=== PATIENT | male | born 1975 | race Hispanic/Latino ===

== ENCOUNTER 2018-07-24 13:50 | Emergency (ER) | payer OTHER, SELFPAY ==
[2018-07-24] MEDS ORDERED: ASPIRIN 81 MG CHEWABLE TABLET ONE (14:35)
[2018-07-24] MEDS ORDERED: FUROSEMIDE 40 MG/4 ML VIAL ONE (14:35)
--- NOTE | 2018-07-24 15:08 | RAD REPORT ---
EXAM DESCRIPTION: Reina Single View07/24/2018 2:52 pm CLINICAL HISTORY: Chest pain COMPARISON: none FINDINGS: Small to moderate left pleural effusion is suspected. Mild left lung opacities are noted which may indicate pneumonia Right lung appears clear. Heart is borderline enlarged. Postsurgical changes involve the chest
[2018-07-24 15:13] LABS: Absolute Lymphocytes (CBC) 1.6 K/uL (0.7-4.9); Absolute Monocytes 0.7 K/uL (0.1-1.3); Absolute Neutrophil 5.4 K/uL (1.8-8.0); Basophils % 1.5 % (0-1.3); Eosinophils % 11.8 % (0-4.4); Hematocrit 40.3 % (39.6-49.0); Lymphocytes % 18.3 % (15.3-44.8); MPV 8.3 fL (7.6-11.3); Monocytes % 7.8 % (3.3-12.3); RBC Red Blood Cell Count 4.73 M/uL (4.33-5.43)
[2018-07-24 15:14] LABS: Protime INR 1.16
[2018-07-24 15:29] LABS: ALT/SGPT 31 U/L (12-78); AST/SGOT 17 U/L (15-37); Albumin 3.1 g/dL (3.4-5.0); Alkaline Phosphatase 127 U/L (45-117); BUN Blood Urea Nitrogen 14 mg/dL (7-18); Bicarbonate 25 mmol/L (21-32); Bilirubin Direct 0.1 mg/dL (0-0.2); Bilirubin Total 0.7 mg/dL (0.2-1.0); Glucose Level 370 mg/dL (74-106); NT PRO-BNP 546 pg/mL (<125); Potassium 4.4 mmol/L (3.5-5.1); Protein, Total 7.7 g/dL (6.4-8.2); Sodium Level 136 mmol/L (136-145); Troponin (Emerg Dept Use Only) < 0.02 ng/mL (0.0-0.045)
[2018-07-24] MEDS ORDERED: CEFTRIAXONE/SWI 1gm 1 GM/10 ML SYR ONE (15:51)
--- NOTE | 2018-07-24 17:58 | ER ---
Nurse's Notes [facility] Name: Andrea Vasquez Age: 42 yrs Sex: Male : 1975 Arrival Date: 07/24/2018 Time: 13:51 Bed 4 Private MD: Diagnosis: Pneumonia, unspecified organism;Chest pain on breathing Presentation: 07/24 13:59 Presenting complaint: Patient states: Shortness of breath and back pain for the past 3 aj1 days. Reports that pain is worse when he takes a deep breath or coughs. Patient reports productive cough. Transition of care: patient was not received from another setting of care. Onset of symptoms was July 21, 2018. Risk Assessment: Do you want to hurt yourself or someone else? Patient reports no desire to harm self or others. Initial Sepsis Screen: Does the patient meet any 2 criteria? No. Patient's initial sepsis screen is negative. Does the patient have a suspected source of infection? Yes: Productive cough/pneumonia. Care prior to arrival: None. 13:59 Method Of Arrival: Ambulatory aj1 13:59 Acuity: BENNY 2 ss Triage Assessment: 14:01 General: Appears in no apparent distress. uncomfortable, Behavior is calm, cooperative, aj1 appropriate for age. Pain: Complains of pain in back Pain currently is 7 out of 10 on a pain scale. Neuro: Level of Consciousness is awake, alert, obeys commands. Cardiovascular: Patient's skin is warm and dry. Respiratory: Reports shortness of breath Airway is patent Respiratory effort is even, unlabored, Respiratory pattern is regular, symmetrical, Onset: The symptoms/episode began/occurred 3 days ago. Historical: - Allergies: 14:01 Metformin HCl; aj1 - Home Meds: 14:24 aspirin 81 mg Oral TbEC 1 tab once daily [Active]; lisinopril 5 mg Oral tab 1 tab once sv daily [Active]; Lopressor 50 mg Oral tab 1 tab 2 times per day [Active]; Lipitor 40 mg Oral tab 1 tab once daily [Active]; Ultram 50 mg Oral tab as needed [Active]; Zoloft 50 mg Oral tab 1 tab once daily [Active]; - PMHx: 14:01 CHF; Myocardial infarction; aj1 - PSHx: 14:01 triple bypass; aj1 - Immunization history:: Flu vaccine is not up to date. - Social history:: Smoking status: Patient uses tobacco products, denies chronic smoking, but will smoke occasionally, Patient uses alcohol, weekly. - Ebola Screening: : Patient denies travel to an Ebola-affected area in the 21 days before illness onset. Screenin:10 Abuse screen: Denies threats or abuse. Denies injuries from another. Nutritional sv screening: No deficits noted. Tuberculosis screening: No symptoms or risk factors identified. Fall Risk None identified. Assessment: 14:10 General: Appears in no apparent distress. uncomfortable, well developed, Behavior is sv calm, cooperative, appropriate for age. Pain: Complains of pain in back Pain currently is 6 out of 10 on a pain scale. Neuro: Level of Consciousness is awake, alert, obeys commands, Oriented to person, place, time, situation, Moves all extremities. Full function Gait is steady, Speech is normal. Cardiovascular: Patient's skin is warm and dry. Rhythm is sinus rhythm. Respiratory: Reports shortness of breath on exertion cough that is productive, pain with respiration Airway is patent Respiratory effort is even, unlabored, Respiratory pattern is regular, symmetrical. Derm: Skin is pink, warm \T\ dry. 15:00 Reassessment: Patient appears in no apparent distress at this time. No changes from hb previously documented assessment. Patient and/or family updated on plan of care and expected duration. Pain level reassessed. Patient is alert, oriented x 3, equal unlabored respirations, skin warm/dry/pink. 16:00 Reassessment: Patient appears in no apparent distress at this time. No changes from hb previously documented assessment. Patient and/or family updated on plan of care and expected duration. Pain level reassessed. Patient is alert, oriented x 3, equal unlabored respirations, skin warm/dry/pink. 17:00 Reassessment: Patient appears in no apparent distress at this time. No changes from hb previously documented assessment. Patient and/or family updated on plan of care and expected duration. Pain level reassessed. Patient is alert, oriented x 3, equal unlabored respirations, skin warm/dry/pink. 18:00 Reassessment: Patient appears in no apparent distress at this time. No changes from hb previously documented assessment. Patient and/or family updated on plan of care and expected duration. Pain level reassessed. Patient is alert, oriented x 3, equal unlabored respirations, skin warm/dry/pink. Vital Signs: 14:01 BP 129 / 89; Pulse 86; Resp 18; Temp 98.0; Pulse Ox 96% on R/A; Weight 92.99 kg (R); aj1 Height 5 ft. 7 in. (170.18 cm) (R); 14:49 BP 135 / 94; Pulse 81; Resp 22; Pulse Ox 96% ; sv 16:00 BP 122 / 81; Pulse 84; Resp 16; Pulse Ox 99% on R/A; hb 17:05 BP 124 / 73; Pulse 69; Resp 16; Pulse Ox 96% ; sv 18:00 BP 126 / 74; Pulse 70; Resp 15; Pulse Ox 99% on R/A; Pain 0/10; hb 14:01 Body Mass Index 32.11 (92.99 kg, 170.18 cm) aj1 ED Course: 13:51 Patient arrived in ED. as 14:00 Triage completed. aj1 14:01 Arm band placed on. aj1 14:10 Patient has correct armband on for positive identification. Placed in gown. Bed in low sv position. Call light in reach. Adult w/ patient. monitor tech on. Pulse ox on. NIBP on. Door closed. Head of bed elevated. 14:13 Jacinto Bach MD is Attending Physician. kdr 14:15 Initial lab(s) drawn, by me, sent to lab. Inserted saline lock: 18 gauge in left sv antecubital area, using aseptic technique. Blood collected. Flushed left antecubital with 5 ml normal saline. 14:22 EKG done, by special effects technician. reviewed by Jacinto Bach MD. sm3 14:23 Vickie Sutherland, RN is Primary Nurse. sv 14:28 Basic Metabolic Panel Sent. sv 14:28 CBC with Diff Sent. sv 14:28 LFT's Sent. sv 14:52 Lab(s) recollected, by me, sent to lab. mh5 14:54 XRAY Chest (1 view) In Process Unspecified. EDMS 17:20 Repeat lab(s) drawn. by me, sent to lab. mh5 18:39 No provider procedures requiring assistance completed. IV discontinued, intact, hb bleeding controlled, No redness/swelling at site. Pressure dressing applied. 19:00 Primary Nurse role handed off by Vickie Sutherland, DONTA sv Administered Medications: 14:26 Drug: Aspirin Chewable Tablet 324 mg Route: PO; hb 14:40 Follow up: Response: No adverse reaction sv 14:26 Drug: Lasix 40 mg Route: IVP; Site: left antecubital; hb 14:40 Follow up: Response: No adverse reaction sv 15:51 Drug: Rocephin - (cefTRIAXone) 1 grams Route: IVPB; Infused Over: 30 mins; Site: left hb antecubital; Outcome: 17:57 Discharge ordered by . kdr 18:39 Discharged to home ambulatory, with family. hb 18:39 Condition: stable 18:39 Discharge instructions given to patient, family, Instructed on discharge instructions, follow up and referral plans. medication usage, Demonstrated understanding of instructions, follow-up care, medications, Prescriptions given X 2. 18:48 Patient left the ED. Signatures: Dispatcher [employer] EDMS Melony Mays RN RN aj1 Vickie Sutherland, Jacinto Sanabria RN, MD MD kdr Martinez, Amelia as Smirch, Shelby, RN RN Shauna Rivas RN RN Amaya Castro 5 Briana Elmore 3 Corrections: (The following items were deleted from the chart) 14:16 13:59 Acuity: BENNY 3 aj1
--- NOTE | 2018-07-24 17:58 | EDPHYS ---
Physician Documentation [facility] Name: Andrea Vasquez Age: 42 yrs Sex: Male : 1975 Arrival Date: 07/24/2018 Time: 13:51 Bed 4 Private MD: ED Physician Jacinto Bach HPI: 07/24 18:14 This 42 yrs old Male presents to ER via Ambulatory with complaints of Flank kdr Pain, Shortness Of Breath. 18:14 The patient has shortness of breath at rest, with light activity. Onset: The kdr symptoms/episode began/occurred gradually, 3 day(s) ago. Duration: The symptoms are continuous, and are steadily getting worse. The patient's shortness of breath is aggravated by exertion, light activity, is alleviated by nothing. Associated signs and symptoms: Pertinent positives: chest pain, Left lateral inferior thorax. The patient has experienced similar episodes in the past, a few times, Seems similar to when he had . The patient has not recently seen a physician. Historical: - Allergies: 14:01 Metformin HCl; aj1 - Home Meds: 14:24 aspirin 81 mg Oral TbEC 1 tab once daily [Active]; lisinopril 5 mg Oral tab 1 tab once sv daily [Active]; Lopressor 50 mg Oral tab 1 tab 2 times per day [Active]; Lipitor 40 mg Oral tab 1 tab once daily [Active]; Ultram 50 mg Oral tab as needed [Active]; Zoloft 50 mg Oral tab 1 tab once daily [Active]; - PMHx: 14:01 CHF; Myocardial infarction; aj1 - PSHx: 14:01 triple bypass; aj1 - Immunization history:: Flu vaccine is not up to date. - Social history:: Smoking status: Patient uses tobacco products, denies chronic smoking, but will smoke occasionally, Patient uses alcohol, weekly. - Ebola Screening: : Patient denies travel to an Ebola-affected area in the 21 days before illness onset. ROS: 18:14 Constitutional: Negative for fever, chills, and weight loss, Eyes: Negative for injury, kdr pain, redness, and discharge, ENT: Negative for injury, pain, and discharge, Neck: Negative for injury, pain, and swelling, Abdomen/GI: Negative for abdominal pain, nausea, vomiting, diarrhea, and constipation, Back: Negative for injury and pain, : Negative for injury, bleeding, discharge, and swelling, MS/Extremity: Negative for injury and deformity, Skin: Negative for injury, rash, and discoloration, Neuro: Negative for headache, weakness, numbness, tingling, and seizure activity. Psych: Negative for depression, anxiety, suicide ideation, homicidal ideation, and hallucinations, Allergy/Immunology: Negative for hives, rash, and allergies, Endocrine: Negative for neck swelling, polydipsia, polyuria, polyphagia, and marked weight changes, Hematologic/Lymphatic: Negative for swollen nodes, abnormal bleeding, and unusual bruising. 18:14 Cardiovascular: Positive for chest pain, with cough, with movement, Negative for edema, orthopnea, palpitations, paroxysmal nocturnal dyspnea. Exam: 18:14 Constitutional: This is a well developed, well nourished patient who is awake, alert, kdr and in no acute distress. Head/Face: Normocephalic, atraumatic. Eyes: Pupils equal round and reactive to light, extra-ocular motions intact. Lids and lashes normal. Conjunctiva and sclera are non-icteric and not injected. Cornea within normal limits. Periorbital areas with no swelling, redness, or edema. Neck: Trachea midline, no thyromegaly or masses palpated, and no cervical lymphadenopathy. Supple, full range of motion without nuchal rigidity, or vertebral point tenderness. No Meningismus. Chest/axilla: Normal chest wall appearance and motion. Nontender with no deformity. No lesions are appreciated. Cardiovascular: Regular rate and rhythm with a normal S1 and S2. No gallops, murmurs, or rubs. Normal PMI, no JVD. No pulse deficits. Abdomen/GI: Soft, non-tender, with normal bowel sounds. No distension or tympany. No guarding or rebound. No evidence of tenderness throughout. Back: No spinal tenderness. No costovertebral tenderness. Full range of motion. Skin: Warm, dry with normal turgor. Normal color with no rashes, no lesions, and no evidence of cellulitis. MS/ Extremity: Pulses equal, no cyanosis. Neurovascular intact. Full, normal range of motion. Neuro: Awake and alert, GCS 15, oriented to person, place, time, and situation. Cranial nerves II-XII grossly intact. Motor strength 5/5 in all extremities. Sensory grossly intact. Cerebellar exam normal. Normal gait. Psych: Awake, alert, with orientation to person, place and time. Behavior, mood, and affect are within normal limits. 18:14 Respiratory: the patient does not display signs of respiratory distress, Respirations: normal, Breath sounds: rales, that are mild, are heard in the left posterior lower lobe. Vital Signs: 14:01 BP 129 / 89; Pulse 86; Resp 18; Temp 98.0; Pulse Ox 96% on R/A; Weight 92.99 kg (R); aj1 Height 5 ft. 7 in. (170.18 cm) (R); 14:49 BP 135 / 94; Pulse 81; Resp 22; Pulse Ox 96% ; sv 16:00 BP 122 / 81; Pulse 84; Resp 16; Pulse Ox 99% on R/A; hb 17:05 BP 124 / 73; Pulse 69; Resp 16; Pulse Ox 96% ; sv 18:00 BP 126 / 74; Pulse 70; Resp 15; Pulse Ox 99% on R/A; Pain 0/10; hb 14:01 Body Mass Index 32.11 (92.99 kg, 170.18 cm) aj1 MDM: 16:48 Data reviewed: vital signs, nurses notes, lab test result(s), EKG, radiologic studies. kdr Counseling: I had a detailed discussion with the patient and/or guardian regarding: the historical points, exam findings, and any diagnostic results supporting the discharge/admit diagnosis, lab results, radiology results, the need for outpatient follow up. ED course: The patient was stable in the ED. 17:57 Patient medically screened. [facility] 07/24 14:13 Order name: Basic Metabolic Panel [facility] 07/24 14:13 Order name: CBC with Diff 07/24 14:13 Order name: LFT's 07/24 14:13 Order name: Magnesium; Complete Time: 16:23 [facility] 07/24 14:13 Order name: NT PRO-BNP; Complete Time: 16:23 [facility] 07/24 14:13 Order name: PT-INR; Complete Time: 15:29 [facility] 07/24 14:13 Order name: Troponin (emerg Dept Use Only); Complete Time: 16:23 [facility] 07/24 14:13 Order name: XRAY Chest (1 view); Complete Time: 15:29 [facility] 07/24 14:13 Order name: Basic Metabolic Panel; Complete Time: 16:23 [facility] 07/24 14:13 Order name: CBC with Automated Diff; Complete Time: 15:29 [facility] 07/24 14:13 Order name: Liver (Hepatic) Function; Complete Time: 16:23 [facility] 07/24 16:49 Order name: Troponin (emerg Dept Use Only); Complete Time: 17:56 [facility] 07/24 14:13 Order name: EKG; Complete Time: 14:14 [facility] 07/24 14:13 Order name: Cardiac monitoring; Complete Time: 14:27 [facility] 07/24 14:13 Order name: EKG - Nurse/Tech; Complete Time: 14:27 [facility] 07/24 14:13 Order name: IV Saline Lock; Complete Time: 14: [facility] 07/24 14:13 Order name: Labs collected and sent; Complete Time: 14: [facility] 07/24 14:13 Order name: O2 Per Protocol; Complete Time: 14:27 [facility] 07/24 14:13 Order name: O2 Sat Monitoring; Complete Time: 14:28 [facility] 07/24 14:39 Order name: Labs - recollect needed; Complete Time: 14:52 eb Administered Medications: 14:26 Drug: Aspirin Chewable Tablet 324 mg Route: PO; hb 14:40 Follow up: Response: No adverse reaction sv 14:26 Drug: Lasix 40 mg Route: IVP; Site: left antecubital; hb 14:40 Follow up: Response: No adverse reaction sv 15:51 Drug: Rocephin - (cefTRIAXone) 1 grams Route: IVPB; Infused Over: 30 mins; Site: left hb antecubital; Disposition: 07/24/18 17:57 Discharged to Home. Impression: Pneumonia, unspecified organism, Chest pain on breathing. - Condition is Stable. - Discharge Instructions: Heart-Healthy Eating Plan, [id number], Heart-Healthy Eating Plan, Community-Acquired Pneumonia, Adult, Nonspecific Chest Pain, [id number]. - Prescriptions for Cipro 500 mg Oral Tablet - take 1 tablet by ORAL route every 12 hours for 10 days; 20 tablet. Albuterol Sulfate 90 mcg/actuation - inhale 1-2 puff by INHALATION route every 4-6 hours; 1 Inhaler. - Medication Reconciliation Form, Thank You Letter, Antibiotic Education form. - Follow up: Private Physician; When: 2 - 3 days; Reason: If symptoms return, Further diagnostic work-up, Recheck today's complaints, Continuance of care, Re-evaluation by your physician. - Problem is new. - Symptoms have improved. Signatures: Dispatcher [employer] EDMelony Velazquez RN RN aj1 Vickie Sutherland RN RN sv Jacinto Bach MD MD [facility] Shauna Rivas RN RN Leighann Langston Corrections: (The following items were deleted from the chart) 18:48 17:57 07/24/2018 17:57 Discharged to Home. Impression: Pneumonia, unspecified organism; hb Chest pain on breathing. Condition is Stable. Discharge Instructions: Heart-Healthy Eating Plan, [id number], Heart-Healthy Eating Plan. Forms are Medication Reconciliation Form, Thank You Letter, Antibiotic Education, Prescription Opioid Use. Follow up: Private Physician; When: 2 - 3 days; Reason: If symptoms return, Further diagnostic work-up, Recheck today's complaints, Continuance of care, Re-evaluation by your physician. Problem is new. Symptoms have improved. kdr
--- NOTE | 2018-07-25 06:44 | EKG ---
Test Date: 2018-07-24 Test Time: 14:09:08 Tool Radial Drill Press Set Up Operator: YADI MEASUREMENT RESULTS: Intervals: Rate: 87 TX: 162 QRSD: 122 QT: 368 QTc: 442 Chunky: P: 38 TX: 162 QRS: 126 T: 22 INTERPRETIVE STATEMENTS: Normal sinus rhythm Right axis deviation Anterior infarct, possibly acute ACUTE [place] Abnormal ECG Compared to ECG 01/05/2017 10:29:29 Right-axis deviation now present Sinus tachycardia no longer present Left-axis deviation no longer present T-wave abnormality no longer present Possible ischemia no longer present Myocardial infarct finding still present Electronically Signed On 07-25-18 06:42:22 CDT by Jabari Clemens
== END 2018-07-24 18:48 | disposition home or self-care (01) ==
LOC: ER 13:50
DX: J18.9 Pneumonia, unspecified organism (principal); I50.9 Heart failure, unspecified; I25.2 Old myocardial infarction; Z79.82 Long term (current) use of aspirin; Z88.8 Allergy status to other drugs, medicaments and biological substances; Z72.0 Tobacco use
CPT/HCPCS: 36415; 71045; 80048; 80076; 83735; 83880; 84484; 85025; 85610; 93005; 96374; 96375; 99285; J0696; J1940

== ENCOUNTER 2019-12-10 12:42 | Emergency (ER) | payer SELFPAY ==
--- NOTE | 2019-12-10 14:30 | RAD REPORT ---
EXAM DESCRIPTION: CT - Head Brain Wo Cont - 12/10/2019 2:05 pm CLINICAL HISTORY: HEADACHE COMPARISON: No comparisons TECHNIQUE: Axial 5 mm thick images of the head were obtained without IV contrast. All CT scans are performed using dose optimization technique as appropriate and may include automated exposure control or mA/KV adjustment according to patient size. FINDINGS: No intracranial hemorrhage, mass, edema or shift of mid-line structures. No acute infarcti on changes seen. No abnormal extra-axial fluid collections. Ventricles are normal. Mastoid air cells and visualized portions of the paranasal sinuses are clear. No acute bony findings. IMPRESSION: Negative non-contrast CT head examination.
--- NOTE | 2019-12-10 14:58 | ER ---
Nurse's Notes [facility] Name: Andrea Vasquez Age: 44 yrs Sex: Male : 1975 Arrival Date: 12/10/2019 Time: 12:43 Bed 23 Private MD: Diagnosis: Headache Presentation: 12/09 12:49 Chief complaint: Patient states: For the past 2 weeks or so, I have been feeling ca1 lightheaded, nauseous, pain on my eyes and back of my head, ringing of the ears, light and sound sensitivity. I feel like when my heart beats, I can feel it in my eyes. Denies hx of CVA. Reports Hx of heart attack with triple CABG. Coronavirus screen: Client denies travel out of the [place] in the last 14 days. At this time, the client does not indicate any symptoms associated with coronavirus-19. Ebola Screen: Patient negative for fever greater than or equal to 101.5 degrees Fahrenheit, and additional compatible Ebola Virus Disease symptoms Patient denies exposure to infectious person. Patient denies travel to an Ebola-affected area in the 21 days before illness onset. No symptoms or risks identified at this time. Initial Sepsis Screen: Does the patient meet any 2 criteria? No. Patient's initial sepsis screen is negative. Does the patient have a suspected source of infection? No. Patient's initial sepsis screen is negative. Risk Assessment: Do you want to hurt yourself or someone else? Patient reports no desire to harm self or others. Onset of symptoms was December 10, 2019. 12:49 Method Of Arrival: Ambulatory ca1 12:49 Acuity: BENNY 3 ca1 Triage Assessment: 14:28 General: Appears in no apparent distress. comfortable, Behavior is calm, cooperative. ls4 Historical: - Allergies: 12:57 Metformin HCl; ca1 - Home Meds: 12:57 aspirin 81 mg Oral TbEC 1 tab once daily [Active]; Lipitor 40 mg Oral tab 1 tab once ca1 daily [Active]; lisinopril 10 mg oral tab 1 tab once daily [Active]; metformin 1,000 mg Oral tab 1 tab 2 times per day [Active]; Lopressor 50 mg Oral tab 1 tab 2 times per day [Active]; bupropion HCl 150 mg Oral Tb24 1 tab twice a day [Active]; Lantus 100 unit/mL Sub-Q soln [Active]; Victoza 2-Sincere 0.6 mg/0.1 mL (18 mg/3 mL) subcutaneous pnij [Active]; Fish Oil oral oral [Active]; - PMHx: 12:57 CHF; Myocardial infarction; Diabetes - IDDM; ca1 - PSHx: 12:57 triple bypass; ca1 - Immunization history:: Adult Immunizations up to date. - Social history:: Smoking status: Patient reports the use of cigarette tobacco products, denies chronic smoking, but will smoke occasionally. - Family history:: not pertinent. - Hospitalizations: : No recent hospitalization is reported. Screenin:42 Abuse screen: Denies threats or abuse. Denies injuries from another. Nutritional ls4 screening: No deficits noted. Tuberculosis screening: No symptoms or risk factors identified. Fall Risk None identified. Assessment: 13:47 General: Appears in no apparent distress. comfortable. Pain:. Neuro: Level of ls4 Consciousness is awake, alert, obeys commands, Oriented to person, place, time, situation, Personal Banker are equal bilaterally Moves all extremities. Gait is steady, Speech is normal. Respiratory: No deficits noted. Respiratory effort is even, unlabored, Respiratory pattern is regular. EENT: Reports ringing in right ear and left ear like a wind in ears and can hear heart beat in ears in the middle of the night. Also complains of headaches. 14:55 Reassessment: Patient appears in no apparent distress at this time. Patient and/or ls4 family updated on plan of care and expected duration. Pain level reassessed. Patient is alert, oriented x 3, equal unlabored respirations, skin warm/dry/pink. Patient denies pain at this time. Vital Signs: 12:49 BP 130 / 98; Pulse 96; Resp 16 S; Temp 97.6(TE); Pulse Ox 96% on R/A; Weight 102.06 kg ca1 (R); Height 5 ft. 7 in. (170.18 cm) (R); Pain 0/10; 15:00 BP 121 / 90; Pulse 83; Resp 18; Temp 97.6(O); Pulse Ox 99% on R/A; Pain 0/10; ls4 12:49 Body Mass Index 35.24 (102.06 kg, 170.18 cm) ca1 Stephanie Coma Score: 14:56 Eye Response: spontaneous(4). Verbal Response: oriented(5). Motor Response: obeys rn commands(6). Total: 15. ED Course: 12:43 Patient arrived in ED. ag5 12:54 Triage completed. ca1 12:57 Arm band placed on right wrist. ca1 13:40 Cristina Saeed, RN is Primary Nurse. ls4 13:41 Papo Angeles MD is Attending Physician. rn 13:42 Patient has correct armband on for positive identification. Bed in low position. Call ls4 light in reach. Side rails up X 1. 13:49 No apparent distress. ls4 13:49 No provider procedures requiring assistance completed. Patient maintains SpO2 ls4 saturation greater than 95% on room air. 14:04 CT Head Brain wo Cont In Process Unspecified. EDMS 15:17 Patient did not have IV access during this emergency room visit. ls4 Administered Medications: No medications were administered Outcome: 14:57 Discharge ordered by . rn 15:16 Discharged to home ambulatory. ls4 15:16 Condition: good 15:16 Discharge instructions given to patient, family, Instructed on discharge instructions, follow up and referral plans. safe sex practices, Demonstrated understanding of instructions, follow-up care, medications. 15:17 Patient left the ED. ls4 Signatures: Dispatcher [employer] EDMS Papo Angeles MD MD rn Stewart, Lisa, RN RN ls4 Dayami Zaragoza RN RN ca1 Abdirahman Saravia ag5
--- NOTE | 2019-12-10 14:58 | EDPHYS ---
Physician Documentation [facility] Name: Andrea Vasquez Age: 44 yrs Sex: Male : 1975 Arrival Date: 12/10/2019 Time: 12:43 Bed 23 Private MD: ED Physician Papo Angeles HPI: 12/09 13:50 This 44 yrs old Male presents to ER via Ambulatory with complaints of headache.rn 13:50 The patient complains of pain to the top of head. The patient describes the headache as rn aching. 13:51 Onset: The symptoms/episode began/occurred 2 week(s) ago. Associated signs and rn symptoms: Pertinent negatives: altered mental status, fever, neck stiffness, rash, vision changes, vision loss, vomiting, vertigo. Severity of symptoms: At its worst the pain was moderate, in the emergency department the pain has improved. The symptoms are alleviated by nothing. the symptoms are aggravated by nothing. The patient has not experienced similar symptoms in the past. Reports recently started on victoza, has been experiencing headaches, posterior and behind eyes, no fever, no head injury, no focal neuro complaints. Does not feel ill. . Historical: - Allergies: 12:57 Metformin HCl; ca1 - Home Meds: 12:57 aspirin 81 mg Oral TbEC 1 tab once daily [Active]; Lipitor 40 mg Oral tab 1 tab once ca1 daily [Active]; lisinopril 10 mg oral tab 1 tab once daily [Active]; metformin 1,000 mg Oral tab 1 tab 2 times per day [Active]; Lopressor 50 mg Oral tab 1 tab 2 times per day [Active]; bupropion HCl 150 mg Oral Tb24 1 tab twice a day [Active]; Lantus 100 unit/mL Sub-Q soln [Active]; Victoza 2-Sincere 0.6 mg/0.1 mL (18 mg/3 mL) subcutaneous pnij [Active]; Fish Oil oral oral [Active]; - PMHx: 12:57 CHF; Myocardial infarction; Diabetes - IDDM; ca1 - PSHx: 12:57 triple bypass; ca1 - Immunization history:: Adult Immunizations up to date. - Social history:: Smoking status: Patient reports the use of cigarette tobacco products, denies chronic smoking, but will smoke occasionally. - Family history:: not pertinent. - Hospitalizations: : No recent hospitalization is reported. ROS: 13:51 Constitutional: Negative for fever, chills, and weight loss, Eyes: Negative for injury, rn pain, redness, and discharge, Neck: Negative for injury, pain, and swelling, Cardiovascular: Negative for chest pain, palpitations, and edema, Respiratory: Negative for shortness of breath, cough, wheezing, and pleuritic chest pain, Abdomen/GI: Negative for abdominal pain, nausea, vomiting, diarrhea, and constipation, MS/Extremity: Negative for injury and deformity, Skin: Negative for injury, rash, and discoloration, Neuro: Negative for weakness, numbness, tingling, and seizure. Exam: 13:51 Constitutional: This is a well developed, well nourished patient who is awake, alert, rn and in no acute distress. Head/Face: Normocephalic, atraumatic. Eyes: Pupils equal round and reactive to light, extra-ocular motions intact. Lids and lashes normal. Conjunctiva and sclera are non-icteric and not injected. Cornea within normal limits. Periorbital areas with no swelling, redness, or edema. Cardiovascular: Regular rate and rhythm. No pulse deficits. Respiratory: Speaking full sentences. No increased work of breathing, no retractions or nasal flaring. Skin: Warm, dry MS/ Extremity: Pulses equal, no cyanosis. Neuro: Awake and alert, GCS 15, oriented to person, place, time, and situation. Cranial nerves II-XII grossly intact. Motor strength 5/5 in all extremities. Sensory grossly intact. Cerebellar exam normal. Vital Signs: 12:49 BP 130 / 98; Pulse 96; Resp 16 S; Temp 97.6(TE); Pulse Ox 96% on R/A; Weight 102.06 kg ca1 (R); Height 5 ft. 7 in. (170.18 cm) (R); Pain 0/10; 15:00 BP 121 / 90; Pulse 83; Resp 18; Temp 97.6(O); Pulse Ox 99% on R/A; Pain 0/10; ls4 12:49 Body Mass Index 35.24 (102.06 kg, 170.18 cm) ca1 Stephanie Coma Score: 14:56 Eye Response: spontaneous(4). Verbal Response: oriented(5). Motor Response: obeys rn commands(6). Total: 15. MDM: 13:41 Patient medically screened. rn 14:56 Differential diagnosis: hypertensive headache, migraine, neoplasm, tension headache, rn vasomotor headache. Data reviewed: vital signs, nurses notes, EKG, radiologic studies, CT scan, and as a result, I will discharge patient. Counseling: I had a detailed discussion with the patient and/or guardian regarding: the historical points, exam findings, and any diagnostic results supporting the discharge/admit diagnosis, radiology results, the need for outpatient follow up, to return to the emergency department if symptoms worsen or persist or if there are any questions or concerns that arise at home. Response to treatment: the patient's symptoms have mildly improved after treatment, and as a result, I will discharge patient. Special discussion: I discussed with the patient/guardian in detail that at this point there is no indication for admission to the hospital. It is understood, however, that if the symptoms persist or worsen the patient needs to return immediately for re-evaluation. ED course: Neg ct head, no ischemia on ECG, will dc home as possible medication side effect, will f/u with pcp for further recs. . 12/09 13:49 Order name: CT Head Brain wo Cont; Complete Time: 14:55 rn 12/09 13:49 Order name: EKG; Complete Time: 13:50 rn 12/09 13:49 Order name: EKG - Nurse/Tech; Complete Time: 14:27 rn Administered Medications: No medications were administered Disposition: 12/10/19 14:57 Discharged to Home. Impression: Headache. - Condition is Stable. - Discharge Instructions: General Headache Without Cause, Hypertension. - Medication Reconciliation Form, Thank You Letter, Antibiotic Education, Prescription Opioid Use form. - Follow up: Private Physician; When: As needed; Reason: Recheck today's complaints, Re-evaluation by your physician. - Problem is new. - Symptoms have improved. Signatures: Dispatcher [employer] EDMS Papo Angeles MD MD rn Stewart, Lisa, RN RN ls4 Dayami Zaragoza RN RN ca1 Corrections: (The following items were deleted from the chart) 15:17 14:57 12/10/2019 14:57 Discharged to Home. Impression: Headache. Condition is Stable. ls4 Forms are Medication Reconciliation Form, Thank You Letter, Antibiotic Education, Prescription Opioid Use. Follow up: Private Physician; When: As needed; Reason: Recheck today's complaints, Re-evaluation by your physician. Problem is new. Symptoms have improved. rn
[2019-12-10 15:50] VITALS: TEMP 97.6
[2019-12-10 15:52] VITALS: BP 121/90; O2SAT 99
--- NOTE | 2019-12-11 11:23 | EKG ---
Test Date: 2019-12-10 Test Time: 14:29:13 Manager [place]: JEFFERSON MEASUREMENT RESULTS: Intervals: Rate: 93 ND: 196 QRSD: 130 QT: 376 QTc: 467 [place]: P: 47 ND: 196 QRS: 241 T: 77 INTERPRETIVE STATEMENTS: Normal sinus rhythm Right superior axis deviation Nonspecific intraventricular block Cannot rule out Anterior infarct, age undetermined Abnormal ECG Compared to ECG 07/24/2018 14:09:08 Right superior axis now present Right-axis deviation no longer present Myocardial infarct finding still present Electronically Signed On 12-11-19 11:20:26 CDT by Jabari Clemens
== END 2019-12-10 15:17 | disposition home or self-care (01) ==
LOC: ER 12:42
DX: R51 Headache (principal); E11.9 Type 2 diabetes mellitus without complications; I50.9 Heart failure, unspecified; I25.2 Old myocardial infarction; Z95.1 Presence of aortocoronary bypass graft; Z79.82 Long term (current) use of aspirin; Z79.4 Long term (current) use of insulin; Z88.8 Allergy status to other drugs, medicaments and biological substances
CPT/HCPCS: 70450; 93005; 99284

== ENCOUNTER 2022-06-18 14:41 | Emergency (ER) | payer SELFPAY ==
--- OUTSIDE RECORDS SUMMARY | 2022-06-18 14:46 | XMS REPORT | Continuity of Care Document ---
:1975 Author Organization [facility] t Address [address] [facility] [address] [place] [id number] Care Team Providers Name Role Phone Doctor Unassigned, [place] Attending Clinician Unavailable Christy Nazario Attending Clinician Unavailable Sujatha Woods MD Attending Clinician SUJATHA WOODS Attending Clinician Unavailable Problems Condition Condition Condition Status Onset Resolution Last Treating Co mments Source Name Details Category Date Date Treatment Clinician Date Essential Essential Disease Active 2020-0 Uni vers hypertensi hypertensi 6-17 it y of on on 00:00: [place] [id number] Medical Branch Cigarette Cigarette Disease Active 2020-0 Uni vers smoker smoker 6-17 ity of 00:00: [address] Branch Hyperlipid Hyperlipid Disease Active 2020-0 U nivers emia, emia, 6-17 ity of unspecifie [place] Medical hyperlipid hyperlipid Br anch emia type emia type CLIVE on CLIVE on Disease Active 2020-0 Univers CPAP CPAP 6-17 ity of 00:00: [place] 00 Medical Branch Obesity Obesity Disease Active 2020-0 Univers (BMI (BMI 6-17 ity of 30-39.9) 30-39.9) 00:00: [place] 00 Medical Branch Coronary Coronary Disease Active 2020-0 Unive rs artery artery 6-17 ity of disease disease 00:00: [place] involving involving 00 Medi mickey unga unga Branch coronary coronary artery of artery of unga unga heart heart without without angina angina pectoris pectoris Coronary Coronary Disease Active 2020-0 Unive rs artery artery 6-17 ity of disease disease 00:00: [place] involving involving 00 Medi mickey [place] un[place] Branch coronary coronary artery of artery of unga unga heart heart without without angina angina pectoris pectoris Allergies, Adverse Reactions, Alerts Allergy Allergy Status Severity Reaction(s) Onset Inactive Treating Comm ents Source Name Type Date Date Clinician Metformi Propensi Active Other - See Fall U nivers n ty to comments 09-15 asleep ity of adverse 00:00: easily [place] reaction 00 Medical s Branch METFORMI DRUG Active Other-Cmnt Univ ers N INGREDI 09-15 ity of 00:00: [place] 00 Medical Branch NO KNOWN Drug Active Univers ALLERGIE Class ity of S [place] [facility] [place] Social History Social Habit Start Date Stop Date Quantity Comments Source Exposure to Not sure University of SARS-CoV-2 [place] [facility] (event) Branch History of Cigarette Smoker Universi ty of tobacco use [place] [facility] History SDME University o f Alcohol Std [place] [facility] Drinks Branch History SDOH University o f Alcohol Binge [place] [facility] al Branch Sex Assigned At [facility] Alcohol intake 2019-09-16 2019-09-16 Current drinker Unive rsity of 00:00:00 00:00:00 of alcohol [place] [facility] (finding) Branch History SDOH 2019-09-16 2019-09-16 5 University o f Alcohol Frequency 00:00:00 00:00:00 [facility] edical Branch Tobacco use and 2019-09-16 2019-09-16 Never used Universit y of exposure 00:00:00 00:00:00 [facility] Smoking Status Start Date Stop Date Source Current every day smoker 2019-09-16 00:00:00 Uni [facility]ity [facility] Medications Ordered Filled Start Stop Current Ordering Indication Dosage Frequency Signature Comments Components Source Medication Medication Date Date Medication? Clinician (SIG) Name Name clopidogreL 2020- No 75mg Take 75 mg Univers 75 mg 09-15 by mouth ity of tablet 19:17: 00:00 daily. [place] 05 :00 Medical Branch clopidogreL 2020- No 75mg Take 75 mg Univers 75 mg 09-15 by mouth ity of tablet 19:17: 00:00 daily. [place] 05 :00 Medical Branch SERTraline Yes 150mg Take 150 Un last 100 mg 6-17 mg by ity of tablet 18:36: mouth [place] 12 daily. Medical Branch lisinopril Yes 5mg Take 5 mg Un last 5 mg tablet 17 by mouth ity of 18:36: daily. [place] 12 Medical Branch atorvastati Yes 10mg Take 10 mg Univers n (LIPITOR) 6-17 by mouth ity of 10 mg 18:36: at [place] tablet 12 bedtime. Medical Branch aspirin 81 2020-0 Yes 81mg Take 81 mg U nivers mg chewable 6-17 by mouth ity of tablet 18:36: daily. [place] [address] Medical Branch SERTraline 2020-0 Yes 150mg Take 150 Un last 100 mg 6-17 mg by ity of tablet 18:36: mouth [place] 12 daily. Medical Branch lisinopril 2020-0 Yes 5mg Take 5 mg Un last 5 mg tablet 6-17 by mouth ity of 18:36: daily. [place] [address] Medical Branch atorvastati 2020-0 Yes 10mg Take 10 mg Univers n (LIPITOR) 6-17 by mouth ity of 10 mg 18:36: at [place] tablet 12 bedtime. Medical Branch aspirin 81 2020-0 Yes 81mg Take 81 mg U nivers mg chewable 6-17 by mouth ity of tablet 18:36: daily. [place] [address] Medical Branch SERTraline 2020-0 Yes 150mg Take 150 Un last 100 mg 6-17 mg by ity of tablet 18:36: mouth [place] 12 daily. Medical Branch lisinopril 2020-0 Yes 5mg Take 5 mg Un last 5 mg tablet 6-17 by mouth ity of 18:36: daily. [place] [address] Medical Branch atorvastati 2020-0 Yes 10mg Take 10 mg Univers n (LIPITOR) 6-17 by mouth ity of 10 mg 18:36: at [place] tablet 12 bedtime. Medical Branch aspirin 81 2020-0 Yes 81mg Take 81 mg U nivers mg chewable 6-17 by mouth ity of tablet 18:36: daily. [place] [address] Medical Branch SERTraline 2020-0 Yes 150mg Take 150 Un last 100 mg 6-17 mg by ity of tablet 18:36: mouth [place] 12 daily. Medical Branch lisinopril 2020-0 Yes 5mg Take 5 mg Un last 5 mg tablet 6-17 by mouth ity of 18:36: daily. [place] [address] Medical Branch atorvastati 2020-0 Yes 10mg Take 10 mg Univers n (LIPITOR) 6-17 by mouth ity of 10 mg 18:36: at [place] tablet 12 bedtime. Medical Branch aspirin 81 2020-0 Yes 81mg Take 81 mg U nivers mg chewable 6-17 by mouth ity of tablet 18:36: daily. [place] 12 Medical Branch docosahexan 2020-0 Yes Take by Uni vers oic 6-17 mouth ity of acid/epa 18:36: daily. [place] (FISH OIL 11 Medical ORAL) Branch insulin 2020-0 Yes inject Univers aspart 6-17 under the ity of (NOVOLOG 18:36: skin [place] FLEXPEN 11 daily. Medical U-100 Indication Branch INSULIN SC) s: Sliding Scale insulin 2020-0 Yes 20U inject 20 Unive rs glargine,hu 6-17 Units ity of m.rec.anlog 18:36: under the [place] (LANTUS 11 skin Medical SOLOSTAR daily. Branch U-100 INSULIN SC) metoprolol 2020-0 Yes 50mg Take 50 mg U nivers tartrate 50 6-17 by mouth 2 it y of mg tablet 18:36: (two) [place] 11 times Medical daily. Branch docosahexan 2020-0 Yes Take by Uni vers oic 6-17 mouth ity of acid/epa 18:36: daily. [place] (FISH OIL 11 Medical ORAL) Branch insulin 2020-0 Yes inject Univers aspart 6-17 under the ity of (NOVOLOG 18:36: skin [place] FLEXPEN 11 daily. Medical U-100 Indication Branch INSULIN SC) s: Sliding Scale insulin 2020-0 Yes 20U inject 20 Unive rs glargine,hu 6-17 Units ity of m.rec.anlog 18:36: under the [place] (LANTUS 11 skin Medical SOLOSTAR daily. Branch U-100 INSULIN SC) metoprolol 2020-0 Yes 50mg Take 50 mg U nivers tartrate 50 6-17 by mouth 2 it y of mg tablet 18:36: (two) [place] 11 times Medical daily. Branch docosahexan 2020-0 Yes Take by Uni vers oic 6-17 mouth ity of acid/epa 18:36: daily. [place] (FISH OIL 11 Medical ORAL) Branch insulin 2020-0 Yes inject Univers aspart 6-17 under the ity of (NOVOLOG 18:36: skin [place] FLEXPEN 11 daily. Medical U-100 Indication Branch INSULIN SC) s: Sliding Scale insulin 2020-0 Yes 20U inject 20 Unive rs glargine,hu 6-17 Units ity of m.rec.anlog 18:36: under the [place] (LANTUS 11 skin Medical SOLOSTAR daily. Branch U-100 INSULIN SC) metoprolol 2020-0 Yes 50mg Take 50 mg U nivers tartrate 50 6-17 by mouth 2 it y of mg tablet 18:36: (two) [place] 11 times Medical daily. Branch docosahexan 2019-0 Yes Take by Uni vers oic 6-17 mouth ity of acid/epa 18:36: daily. [place] (FISH OIL 11 Medical ORAL) Branch insulin 2019-0 Yes inject Univers aspart 6-17 under the ity of (NOVOLOG 18:36: skin [place] FLEXPEN 11 daily. Medical U-100 Indication Branch INSULIN SC) s: Sliding Scale insulin 2019-0 Yes 20U inject 20 Unive rs glargine,hu 6-17 Units ity of m.rec.anlog 18:36: under the [place] (LANTUS 11 skin Medical SOLOSTAR daily. Branch U-100 INSULIN SC) metoprolol 2019-0 Yes 50mg Take 50 mg U nivers tartrate 50 6-17 by mouth 2 it y of mg tablet 18:36: (two) [place] 11 times Medical daily. Branch Vital Signs Vital Name Observation Time Observation Value Comments Source Systolic blood 2019-09-16 18:29:00 115 mm[Hg] Univer sity of pressure [facility] Diastolic blood 2019-09-16 18:29:00 78 mm[Hg] Unive rsity of [facility] Heart rate 2019-09-16 18:29:00 73 /min [facility] Respiratory rate 2019-09-16 18:29:00 19 /min [facility] Body height 2019-09-16 18:29:00 170.2 cm [facility] Body weight 2019-09-16 18:29:00 102.967 kg [facility] BMI 2019-09-16 18:29:00 35.55 kg/m2 [facility] Oxygen saturation in 2019-09-16 18:29:00 97 /min [facility] Arterial blood by [facility] Pulse oximetry Branch Procedures Procedure Date / Time Performing Clinician Source Performed AUTHORIZATION FOR 2019-11-28 05:01:00 Doctor Unassigned, No [facility] RELEASE OF PHI Name Medical Branch EKG-12 LEAD 2019-09-16 18:43:56 Sujatha Woods o kit [facility] Encounters Start End Encounter Admission Attending Care Care Encounter Source Date/Time Date/Time Type Type Clinicians Facility Department ID 2019-11-28 2019-11-28 Orders Doctor [facility] [id number] Univers 00:00:00 00:00:00 Only Unassigned, MAXIMILIAN [id number] ity of [facility] [id number] [place] as [phone] [facility] [address] [place] 2019-09-17 2019-09-17 Patient Nazario [facility] [id number] Univers 00:00:00 00:00:00 Outreach [facility] [id number] i ty of [place] [id number] [place] as Professio [phone] [place] alison vides [address] [place] [address] 2019-09-16 2019-09-16 Office Chuck [facility] [id number] Univers 13:07:30 15:08:36 Visit Sujatha Stoddard [id number] ity [id number] [place] Profess[place] [phone] [place] dicadithya nal [address] [facility] 2019-09-16 2019-09-16 Outpatient R CHUCK [facility] [id number] Univers 13:00:00 13:00:00 SUJATHA llamas o [facility] [place] [facility] Results This patient has no known results.
--- NOTE | 2022-06-18 16:09 | RAD REPORT ---
EXAM DESCRIPTION: Reina Single View06/18/2022 3:47 pm CLINICAL HISTORY: Chest pain COMPARISON: 2019 FINDINGS: Left pleural thickening is suspected The lungs appear clear of acute infiltrate. The heart is mildly enlarged. Postsurgical changes involve the chest IMPRESSION: No acute abnormalities displayed
[2022-06-18 16:26] LABS: Hematocrit 42.7 % (39.6-49.0); MCV 80.8 fL (80-100); MPV 8.1 fL (7.6-11.3); RBC Red Blood Cell Count 5.28 M/uL (4.33-5.43)
[2022-06-18 16:49] LABS: Albumin 2.5 g/dL (3.4-5.0); Bilirubin Total 0.5 mg/dL (0.2-1.0); Potassium 3.9 mEq/L (3.5-5.1); Protein, Total 6.6 g/dL (6.4-8.2)
--- NOTE | 2022-06-18 17:23 | RAD REPORT ---
EXAM DESCRIPTION: CT - Head Brain Wo Cont - 06/18/2022 5:09 pm CLINICAL HISTORY: Dizziness/visual disturbance COMPARISON: 2019 TECHNIQUE: Computed axial tomography of the head was obtained. IV contrast was not requested. All CT scans are performed using dose optimization technique as appropriate and may include automated exposure control or mA/KV adjustment according to patient size. FINDINGS: An intracranial bleed is not seen The ventricles are normal in caliber No significant hypodense areas within the brain visualized No extra-axial fluid collection is noted. Fluid within the sinuses/ mastoids is not seen IMPRESSION: No acute intracranial abnormality is seen If patient's symptoms persist MRI of the brain would be recommended
--- NOTE | 2022-06-18 17:37 | RAD REPORT ---
EXAM DESCRIPTION: Les Angio06/18/2022 5:09 pm CLINICAL HISTORY: Dizziness/visual disturbance COMPARISON: None TECHNIQUE: Ninety-five cc Isovue 370 was administered intravenously. 3D MIP reconstruction performed All CT scans are performed using dose optimization technique as appropriate and may include automated exposure control or mA/KV adjustment according to patient size. FINDINGS: Mild plaque is present within the carotid bulb and proximal internal carotid arteries. Mild plaque within common carotid and external carotid arteries. Vertebral arteries are codominant. No significant stenosis. Evaluation of the proximal right vertebral artery is limited secondary to ar tifact. No dissection noted IMPRESSION: Mild plaque within the proximal internal carotid arteries and carotid bulbs NASCET criteria used. Mild 0-49% stenosis Moderate 50-69% stenosis Severe 70-99% stenosis
--- NOTE | 2022-06-18 17:41 | RAD REPORT ---
EXAM DESCRIPTION: CTHead angio06/18/2022 5:08 pm CLINICAL HISTORY: Dizziness/visual disturbance COMPARISON: None TECHNIQUE: CT angiogram of the head was obtained. 3D MIPS reconstruction performed. All CT scans are performed using dose optimization technique as appropriate and may include automated exposure control or mA/KV adjustment according to patient size. FINDINGS: Mild to moderate calcified plaque distal internal carotid arteries The basilar,, anterior cerebral, middle cerebral and posterior cerebral arteries do not demonstrate a significant abnormality An aneurysm is not seen A significant stenosis is not noted. IMPRESSION: No acute abnormality is displayed
--- NOTE | 2022-06-18 19:09 | EDPHYS ---
Physician Documentation [facility] Name: Andrea Vasquez Age: 46 yrs Sex: Male : 1975 Arrival Date: 06/18/2022 Time: 14:44 Bed 12 Private MD: ED Physician Phoenix Veras HPI: 06/18 15:06 This 46 yrs old Male presents to ER via Unassigned with complaints of bs3 Weakness, Vision Problem, Dizziness, Breathing Difficulty. 15:06 46-year-old male history of CAD status post CABG, smoker has not seen a primary care bs3 doctor or doctor since November presents with multiple complaints he notes some shortness of breath at mainly he is concerned about dizziness is worse when he leans forward he does not have associated syncope, no numbness tingling or weakness he notes a headache mostly behind his eyes which is chronic in nature he notes that his symptoms have been ongoing for months however they worsened over the last several days no fevers or chills no vomiting diarrhea no black tarry stools or anything else bothering him. Historical: - Allergies: 15:40 Metformin HCl (Sleepy); aa5 - PMHx: 15:40 CHF; Diabetes - IDDM; Myocardial infarction; aa5 15:40 Hypertensive disorder; aa5 - PSHx: 15:40 triple bypass; aa5 - Immunization history:: Adult Immunizations unknown. - Social history:: Smoking status: Patient denies any tobacco usage or history of. ROS: 15:06 Constitutional: Negative for fever, chills bs3 15:06 All other systems are negative. Exam: 15:06 Constitutional: This is a well developed, well nourished patient who is awake, alert, bs3 and in no acute distress. Head/Face: Normocephalic, atraumatic. Eyes: Pupils equal round and reactive to light, extra-ocular motions intact. Lids and lashes normal. ENT: mmm, no posterior phyarngeal erythema Neck: Trachea midline, no thyromegaly, no neck stiffness Chest/axilla: Normal chest wall appearance and motion. Nontender with no deformity. No lesions are appreciated. Cardiovascular: Regular rate and rhythm with a normal S1 and S2. symmetric pulses in upper extremities Respiratory: Lungs have equal breath sounds bilaterally, clear to auscultation, no respiratory distress Abdomen/GI: Soft, non-tender, no rebound or guarding Skin: Warm, dry with normal turgor. Normal color with no rashes, no lesions, and no evidence of cellulitis. MS/ Extremity: Pulses equal, no cyanosis. Neurovascular intact. Full, normal range of motion. Neuro: Awake and alert, GCS 15, oriented to person, place, time, and situation. Cranial nerves II-XII grossly intact. Motor strength 5/5 in all extremities. Sensory grossly intact. Normal gait, NIH stroke scale of 0 Psych: Awake, alert, with orientation to person, place and time. Behavior, mood, and affect are within normal limits. 16:12 Normal sinus rhythm at 78 QRS duration slightly prolonged at [address] elevations or bs3 depressions QTc 469 as inter by myself, not significantly changed from 12/10/2019 19:09 ECG was reviewed by the Attending Physician. [facility] Vital Signs: 15:38 BP 123 / 79; Pulse 80; Resp 16 S; Temp 97.1(TE); Pulse Ox 97% on R/A; Weight 92.99 kg aa5 (R); Height 5 ft. 7 in. (R); 15:38 Body Mass Index 32.11 (92.99 kg, 170.18 cm) aa5 MDM: 14:55 Patient medically screened. bs3 15:06 Data reviewed: vital signs, nurses notes. ED course: Possible carotid artery disease or bs3 vertebral artery disease he is not a candidate for intervention given the duration of his symptoms his NIH stroke scale is 0 possible electrolyte abnormality possible anemia we will do serial exams we will check blood and reassess. 16:56 Consideration of Admission/Observation Escalation of care including bs3 admission/observation considered. Independent interpretation of the following test(s) in the Emergency Department X-Ray: My interpretation is no acute cardiopulm disease. ED course: BNP elevated approximately doubled from prior but that was over 3 years ago he is not hypoxic tachypneic or having increased work of breathing recommended outpatient management. 17:04 ED course: Troponin slightly elevated but less than 34 we will repeat at 3 hours. bs3 17:06 ED course: Patient ambulated without difficulty to CT no dizziness no lightheadedness bs3 no dyspnea. 17:40 ED course: reviewed pt outpatient chart, trop in 2020 was in 26, bnp 1000. bs3 17:42 ED course: cta neg for acute pathology. bs3 06/18 15:06 Order name: CBC with Diff; Complete Time: 16:37 bs3 06/18 15:06 Order name: Comprehensive Metabolic Panel; Complete Time: 16:52 bs3 06/18 16:53 Interpretation: Abnormal. bs3 06/18 15:06 Order name: Troponin High Sensitivity; Complete Time: 16:52 bs3 06/18 15:06 Order name: BNP; Complete Time: 16:52 bs3 06/18 16:54 Interpretation: Abnormal. bs3 06/18 17:04 Order name: Troponin High Sensitivity: to be done at 6pm; Complete Time: 19:07 bs3 06/18 15:06 Order name: XRAY Chest (1 view); Complete Time: 16:18 bs3 06/18 15:06 Order name: CT Head Angio; Complete Time: 17:42 bs3 06/18 15:06 Order name: CT Neck Angio; Complete Time: 17:42 bs3 06/18 15:06 Order name: CT Head Brain wo Cont; Complete Time: 17:42 bs3 06/18 18:28 Order name: EKG; Complete Time: 18:29 marlo 06/18 15:06 Order name: EKG - Nurse/Tech; Complete Time: 16:54 bs3 06/18 18:28 Order name: EKG - Nurse/Tech marlo 06/18 18:28 Order name: Orthostatics marlo EC:09 Rate is 75 beats/min. Rhythm is regular. QRS [place] is Normal. ND interval is normal. QRS marlo interval is normal. QT interval is normal. No Q waves. T waves are Normal. No ST changes noted. Clinical impression: NSR w/ Non-specific ST/T Changes and No evidence of ischemia. Interpreted by me. Reviewed by me. Administered Medications: No medications were administered Disposition Summary: 06/18/22 19:07 Discharge Ordered Location: Home marlo Problem: an acute exacerbation marlo Symptoms: have improved marlo Condition: Fair marlo Diagnosis - Dizziness and giddiness marlo - Heart failure, unspecified marlo - Hyperglycemia, unspecified marlo - Type 1 diabetes mellitus with hyperglycemia marlo Followup: bs3 - With: - When: 1 - 2 days - Reason: Recheck today's complaints Followup: bs3 - With: - When: 1 - 2 days - Reason: Recheck today's complaints Discharge Instructions: - Diabetes Mellitus and Nutrition, Adult marlo - Aspirin and Your Heart marlo - Type 1 Diabetes Mellitus, Self-Care, Adult marlo - Discharge Summary Sheet bs3 - Heart Failure, Diagnosis bs3 - Dizziness bs3 - Hyperglycemia bs3 Forms: - Medication Reconciliation Form marlo - Thank You Letter marlo - Antibiotic Education marlo - Prescription Opioid Use marlo Signatures: Dispatcher [employer] EDPhoenix Barclay MD MD cha Calderon, Audri RN RN aa5 Ney Burr MD MD bs3 Corrections: (The following items were deleted from the chart) 16:16 16:12 Normal sinus rhythm at 78 QRS duration slightly prolonged at [address] elevations bs3 or depressions QTc 469 as inter by myself bs3
--- NOTE | 2022-06-18 19:09 | ER ---
Nurse's Notes [facility] Name: Andrea Vasquez Age: 46 yrs Sex: Male : 1975 Arrival Date: 06/18/2022 Time: 14:44 Bed 12 Private MD: Diagnosis: Dizziness and giddiness;Heart failure, unspecified;Hyperglycemia, unspecified;Type 1 diabetes mellitus with hyperglycemia Presentation: 06/18 15:38 Onset of symptoms was May 2022. aa5 15:38 Acuity: BENNY 3 aa5 15:38 Chief complaint: Patient states: intermittent dizziness and feeling lightheaded that aa5 began 2-3 months ago. 15:38 Risk Assessment: Do you want to hurt yourself or someone else? Patient reports no aa5 desire to harm self or others. 15:38 Coronavirus screen: At this time, the client does not indicate any symptoms associated aa5 with coronavirus-19. Ebola Screen: Patient denies travel to an Ebola-affected area in the 21 days before illness onset. 15:38 Method Of Arrival: Ambulatory aa5 Historical: - Allergies: 15:40 Metformin HCl (Sleepy); aa5 - PMHx: 15:40 CHF; Diabetes - IDDM; Myocardial infarction; aa5 15:40 Hypertensive disorder; aa5 - PSHx: 15:40 triple bypass; aa5 - Immunization history:: Adult Immunizations unknown. - Social history:: Smoking status: Patient denies any tobacco usage or history of. Vital Signs: 15:38 BP 123 / 79; Pulse 80; Resp 16 S; Temp 97.1(TE); Pulse Ox 97% on R/A; Weight 92.99 kg aa5 (R); Height 5 ft. 7 in. (R); 15:38 Body Mass Index 32.11 (92.99 kg, 170.18 cm) aa5 ED Course: 14:44 Patient arrived in ED. rg4 14:55 Ney Burr MD is Attending Physician. bs3 15:35 Arm band placed on. aa5 15:38 Triage completed. aa5 15:49 XRAY Chest (1 view) In Process Unspecified. EDMS 16:42 Leanna Pena, RN is Primary Nurse. iw 17:10 CT Head Angio In Process Unspecified. EDMS 17:10 CT Neck Angio In Process Unspecified. EDMS 17:10 CT Head Brain wo Cont In Process Unspecified. EDMS 18:21 Attending Physician role handed off by Ney Burr MD [facility] 18:21 Phoenix Veras MD is Attending Physician. marlo 19:07 Bert Beach MD is Referral Physician. marlo 19:07 Van Webb MD is Referral Physician. marlo Administered Medications: No medications were administered Outcome: : Discharge ordered by . [facility] 19:41 Patient left the ED. iw Signatures: Dispatcher [employer] EDME Phoenix Veras MD MD cha Williams, Irene, RN RN Shirley Almonte RN RN Arelis Elias 4 Ney uBrr MD MD bs3 Corrections: (The following items were deleted from the chart) 15:41 15:38 Pulse 80bpm; Resp 16bpm; Spontaneous; Pulse Ox 97% RA; Temp 97.1F Temporal; aa5 aa5
[2022-06-18 22:14] VITALS: BP 123/79; TEMP 97.1; O2SAT 97
--- NOTE | 2022-06-19 12:59 | EKG ---
Test Date: 2022-06-18 Test Time: 18:45:37 Solution Spec: CLAUDINE MEASUREMENT RESULTS: Intervals: Rate: 75 TN: 192 QRSD: 136 QT: 408 QTc: 455 [place]: P: 51 TN: 192 QRS: 266 T: 78 INTERPRETIVE STATEMENTS: Normal sinus rhythm Nonspecific intraventricular block Possible Anterolateral infarct, age undetermined Abnormal ECG Compared to ECG 12/10/2019 14:29:13 Right superior axis no longer present Myocardial infarct finding still present Electronically Signed On 06-19-22 12:58:04 CDT by Bert Beach
== END 2022-06-18 19:41 | disposition home or self-care (01) ==
LOC: ER 14:41
DX: R42 Dizziness and giddiness (principal); E10.65 Type 1 diabetes mellitus with hyperglycemia; I50.9 Heart failure, unspecified; I10 Essential (primary) hypertension; Z88.8 Allergy status to other drugs, medicaments and biological substances
CPT/HCPCS: 36415; 70450; 70496; 70498; 71045; 80053; 83880; 84484; 85025; 93005; Q9967

== ENCOUNTER 2022-11-09 22:56 | Observation (INO) | payer SELFPAY ==
[2022-11-09 23:41] LABS: Absolute Lymphocytes (CBC) 1.4 K/uL (0.7-4.9); Hematocrit 46.9 % (39.6-49.0); Lymphocytes % 10.2 % (15.3-44.8); MCV 83.4 fL (80-100); MPV 7.6 fL (7.6-11.3); Platelets 324 thou/uL (152-406); RBC Red Blood Cell Count 5.62 M/uL (4.33-5.43)
[2022-11-09 23:45] LABS: Protime INR 1.1
[2022-11-09] MEDS ORDERED: FAMOTIDINE 20 MG/2 ML VIAL IV ONE (23:49)
[2022-11-09] MEDS ORDERED: ASPIRIN 81 MG CHEWABLE TABLET ONE (23:49)
[2022-11-09] MEDS ORDERED: ONDANSETRON 4 MG/2 ML VIAL ONE (23:49)
[2022-11-09] MEDS ORDERED: NA CHLORIDE 0.9% 1,000 ML ONE (23:50)
[2022-11-10 00:09] LABS: Albumin 3.1 g/dL (3.4-5.0); Bilirubin Direct 0.2 mg/dL (0-0.2); Bilirubin Indirect, Calculated 0.6 mg/dL (0.2-0.8); Bilirubin Total 0.8 mg/dL (0.2-1.0); Magnesium 1.8 mg/dL (1.6-2.4); Protein, Total 7.9 g/dL (6.4-8.2); Troponin High Sensitivity 43.3 pg/mL (<58.9)
[2022-11-10] MEDS ORDERED: MORPHINE 4 MG/ML SYR ONE ×2 (00:12→02:26)
[2022-11-10] MEDS ORDERED: ONDANSETRON 4 MG/2 ML VIAL ONE ×2 (00:13→02:26)
--- NOTE | 2022-11-10 00:51 | ER ---
Nurse's Notes [facility] Name: Andrea Vasquez Age: 47 yrs Sex: Male : 1975 Arrival Date: 11/09/2022 Time: 22:56 Bed 6 Private MD: Diagnosis: Vomiting;Chest pain, unspecified;Cardiomegaly;Type 1 diabetes mellitus with hyperglycemia;Essential (primary) hypertension;Elevated white blood cell count Presentation: 11/09 23:33 Chief complaint: Patient states: I've been having chest pain for the last 2 hours is vc1 started as a pain in my tooth (left bottom jaw) then it moved to my chest. Coronavirus screen: Vaccine status: Patient reports receiving the 1st dose of the Covid vaccine. unsure of residential sales manager Client denies travel out of the [place] in the last 14 days. At this time, the client does not indicate any symptoms associated with coronavirus-19. Ebola Screen: Patient negative for fever greater than or equal to 101.5 degrees Fahrenheit, and additional compatible Ebola Virus Disease symptoms Patient denies exposure to infectious person. Patient denies travel to an Ebola-affected area in the 21 days before illness onset. No symptoms or risks identified at this time. Initial Sepsis Screen: Does the patient meet any 2 criteria? No. Patient's initial sepsis screen is negative. Does the patient have a suspected source of infection? No. Patient's initial sepsis screen is negative. Risk Assessment: Do you want to hurt yourself or someone else? Patient reports no desire to harm self or others. Onset of symptoms was November 09, 2022 at 21:30. 23:33 Method Of Arrival: Ambulatory vc1 23:33 Acuity: BENNY 3 vc1 23:45 Note pt taken off of metoprolol and lisinopril a few weeks ago due to lowering blood vc1 pressure too much. Triage Assessment: 23:40 General: Appears in no apparent distress. uncomfortable, Behavior is cooperative. Pain: vc1 Complains of pain in mid-sternal area Pain radiates to left jaw and left arm Pain currently is 8 out of 10 on a pain scale. Quality of pain is described as discomfort Pain began 2 hours ago. Is intermittent. EENT: No deficits noted. No signs and/or symptoms were reported regarding the EENT system. Neuro: Level of Consciousness is awake, alert, obeys commands, Oriented to person, place, time, situation, Appropriate for age. Cardiovascular: Reports chest pain, nausea, Patient's skin is warm and dry. Chest pain is described as severe, quality is discomfort radiates to left arm(s) jaw(s) began 2 hours prior to arrival episodes are intermittent. Respiratory: Airway is patent Respiratory effort is even, unlabored, Respiratory pattern is regular, symmetrical. GI: Reports nausea. : No deficits noted. No signs and/or symptoms were reported regarding the genitourinary system. Derm: No deficits noted. No signs and/or symptoms reported regarding the dermatologic system. Musculoskeletal: No deficits noted. No signs and/or symptoms reported regarding the musculoskeletal system. Historical: - Allergies: 23:37 Metformin HCl (Sleepy); vc1 - Home Meds: 23:37 aspirin 81 mg Oral TbEC 1 tab once daily [Active]; Lantus 100 unit/mL Sub-Q soln vc1 [Active]; Ozempic subcutaneous 2 units every week [Active]; Farxiga 10 mg oral tablet daily [Active]; - PMHx: 23:37 CHF; Diabetes - IDDM; Hypertensive disorder; Myocardial infarction; vc1 - PSHx: 23:37 triple bypass; vc1 - Immunization history:: Client reports receiving the 1st dose of the Covid vaccine, Flu vaccine is not up to date. - Social history:: Smoking status: Reported history of juuling and/or vaping. Screenin:43 Abuse screen: Denies threats or abuse. Nutritional screening: No deficits noted. vc1 Tuberculosis screening: No symptoms or risk factors identified. 23:45 [facility] ED Fall Risk Assessment (Adult) History of falling in the last 3 months, vc1 including since admission No falls in past 3 months (0 pts) Confusion or Disorientation No (0 pts) Intoxicated or Sedated No (0 pts) Impaired Gait No (0 pts) Mobility Assist Device Used No (0 pt) Altered Elimination No (0 pt) Score/Fall Risk Level 0 - 2 = Low Risk Oriented to surroundings, Maintained a safe environment, Educated pt \T\ family on fall prevention, incl call for assistance when getting out of bed. Assessment: 23:46 General: Appears in no apparent distress. uncomfortable, Behavior is cooperative, jb4 anxious. Pain: Complains of pain in chest Pain does not radiate. Pain currently is 8 out of 10 on a pain scale. Neuro: Level of Consciousness is awake, alert, obeys commands, Oriented to person, place, time, situation. Cardiovascular: Patient's skin is warm and dry. Respiratory: Airway is patent Respiratory effort is even, unlabored, Respiratory pattern is regular, symmetrical. GI: Abdomen is flat, non-distended, Reports nausea. : No signs and/or symptoms were reported regarding the genitourinary system. EENT: No signs and/or symptoms were reported regarding the EENT system. Derm: Skin is intact, Skin is pink, warm \T\ dry. Musculoskeletal: Circulation, motion, and sensation intact. Range of motion: intact in all extremities. 11/10 00:30 Reassessment: Patient appears in no apparent distress at this time. Patient and/or jb4 family updated on plan of care and expected duration. Pain level reassessed. Patient is alert, oriented x 3, equal unlabored respirations, skin warm/dry/pink. 01:30 Reassessment: Patient appears in no apparent distress at this time. Patient and/or jb4 family updated on plan of care and expected duration. Pain level reassessed. Patient is alert, oriented x 3, equal unlabored respirations, skin warm/dry/pink. 02:49 Reassessment: Patient appears in no apparent distress at this time. Patient and/or jb4 family updated on plan of care and expected duration. Pain level reassessed. Patient is alert, oriented x 3, equal unlabored respirations, skin warm/dry/pink. Vital Signs: 11/09 23:33 BP 184 / 114; Pulse 117; Resp 15; Temp 98.9; Pulse Ox 97% ; Weight 88.45 kg; Height 5 vc1 ft. 7 in. ; Pain 8/10; 11/10 00:30 BP 164 / 101; Pulse 107; Resp 22; Pulse Ox 98% on R/A; jb4 00:56 BP 153 / 97; Pulse 107; Resp 20; Pulse Ox 94% on R/A; jb4 01:30 BP 152 / 102; Pulse 109; Resp 19; Pulse Ox 96% on R/A; jb4 02:49 BP 138 / 101; Pulse 99; Resp 22; Pulse Ox 93% on R/A; jb4 11/09 23:33 Body Mass Index 30.54 (88.45 kg, 170.18 cm) vc1 11/09 23:33 Pain Scale: Adult vc1 ED Course: 11/09 22:57 Patient arrived in ED. jj6 23:27 Phoenix Veras MD is Attending Physician. [facility] 23:30 Initial lab(s) drawn, by ms, sent to lab. Inserted saline lock: 18 gauge in right jb4 antecubital area, using aseptic technique. Blood collected. 23:37 Triage completed. vc1 23:43 Arm band placed on left wrist. vc1 23:44 Patient has correct armband on for positive identification. Bed in low position. Call vc1 light in reach. Client placed on continuous cardiac and pulse oximetry monitoring. NIBP monitoring applied. 23:45 Solomon Dougherty, DONTA is Primary Nurse. [facility] 23:55 XRAY Chest (1 view) In Process Unspecified. EDMS 11/10 00:48 Luis E Laughlin MD is Hospitalizing Provider. [facility] 02:51 Notified ED physician of a critical lab result(s). troponin 83. kl 03:08 No provider procedures requiring assistance completed. Patient admitted, IV remains in vc1 place. 03:09 Provided Education on: Plavix vs. lovenox. vc1 Administered Medications: 00:38 Discontinued: NS 0.9% IV 1000 ml IV at 1 bolus Per protocol; 1000 mL bolus [facility] 11/09 23:45 Drug: NS 0.9% IV 1000 ml Route: IV; Rate: 1 bolus; Site: right antecubital; [facility] 11/10 00:30 Follow up: Response: No adverse reaction; IV Status: Completed infusion; IV Intake: jb4 1000ml 11/09 23:45 Drug: Ondansetron IVP 4 mg Route: IVP; Site: right antecubital; [facility] 23:45 Drug: Aspirin PO Chewable Tablet 162 mg Route: PO; [facility] 23:45 Drug: Famotidine IVP 20 mg Route: IVP; Site: right antecubital; [facility] 11/10 00:07 Drug: morphine IVP or IV 4 mg Route: IVP; Infused Over: 4 mins; Site: right antecubital;vc1 00:07 Drug: Ondansetron IVP 4 mg Route: IVP; Site: right antecubital; vc1 01:01 Not Given (Hemodynamic Parameters): Metoprolol IVP 5 mg IVP once; Hold for SBP <100 or jb4 HR <60. 01:01 Not Given (Other Intervention Used): Lisinopril PO 10 mg PO once jb4 01:04 Not Given (Other Intervention Used): Nitroglycerin Transdermal Ointment 2 % 1 inches jb4 Transdermal once 01:12 Drug: Metoprolol PO 50 mg Route: PO; jb4 01:12 Drug: Furosemide IVP 40 mg Route: IVP; Site: right antecubital; jb4 01:12 Drug: Enoxaparin Sub-Q 1 mg/kg Route: Sub-Q; Site: right lower abdomen; jb4 01:12 Drug: Lisinopril PO 5 mg Route: PO; jb4 01:12 Drug: Nitroglycerin Transdermal Ointment 2 % 0.5 inches Route: Transdermal; Site: jb4 anterior chest wall; 03:05 Drug: Clopidogrel PO 300 mg Route: PO; vc1 03:05 Follow up: Response: administered at admission vc1 Medication: 11/09 23:45 VIS not applicable for this client. vc1 Intake: 11/10 00:30 IV: 1000ml; Total: 1000ml. jb4 Outcome: 00:51 Decision to Hospitalize by Provider. marlo 03:09 Admitted to Tele accompanied by nurse, via wheelchair, room 410. vc1 03:09 Condition: good 03:09 Instructed on the need for admit. 03:10 Patient left the ED. vc1 Signatures: Dispatcher [employer] EDMiranda Monroe RN RN kl Anderson, Corey, MD MD cha Bryson, James, RN RN jb4 Jeffries, Jennifer jj6 Ivanna Barrow RN RN vc1
--- NOTE | 2022-11-10 00:52 | EDPHYS ---
Physician Documentation [facility] Name: Andrea Vasquez Age: 47 yrs Sex: Male : 1975 Arrival Date: 11/09/2022 Time: 22:56 Bed 6 Private MD: ED Physician Phoenix Veras HPI: 11/10 00:40 This 47 yrs old Male presents to ER via Ambulatory with complaints of marlo Nausea/Vomiting, Chest Pain. 00:40 The patient presents to the emergency department with nausea, vomiting, marlo Historical: - Allergies: 11/09 23:37 Metformin HCl (Sleepy); vc1 - Home Meds: 23:37 aspirin 81 mg Oral TbEC 1 tab once daily [Active]; Lantus 100 unit/mL Sub-Q soln vc1 [Active]; Ozempic subcutaneous 2 units every week [Active]; Farxiga 10 mg oral tablet daily [Active]; - PMHx: 23:37 CHF; Diabetes - IDDM; Hypertensive disorder; Myocardial infarction; vc1 - PSHx: 23:37 triple bypass; vc1 - Immunization history:: Client reports receiving the 1st dose of the Covid vaccine, Flu vaccine is not up to date. - Social history:: Smoking status: Reported history of juuling and/or vaping. ROS: 11/10 00:40 Constitutional: Negative for fever, chills, and weight loss, Eyes: Negative for injury, marlo pain, redness, and discharge, ENT: Negative for injury, pain, and discharge, Neck: Negative for injury, pain, and swelling, Respiratory: Negative for shortness of breath, cough, wheezing, and pleuritic chest pain, Back: Negative for injury and pain, : Negative for injury, bleeding, discharge, and swelling, MS/Extremity: Negative for injury and deformity, Skin: Negative for injury, rash, and discoloration, Neuro: Negative for headache, weakness, numbness, tingling, and seizure, Psych: Negative for depression, anxiety, suicide ideation, homicidal ideation, and hallucinations, Allergy/Immunology: Negative for hives, rash, and allergies, Endocrine: Negative for neck swelling, polydipsia, polyuria, polyphagia, and marked weight changes, Hematologic/Lymphatic: Negative for swollen nodes, abnormal bleeding, and unusual bruising. Cardiovascular: Positive for chest pain. Abdomen/GI: Positive for abdominal pain, nausea, vomiting. Exam: 00:40 Constitutional: This is a well developed, well nourished patient who is awake, alert, marlo and in no acute distress. Head/Face: Normocephalic, atraumatic. Eyes: Pupils equal round and reactive to light, extra-ocular motions intact. Lids and lashes normal. Conjunctiva and sclera are non-icteric and not injected. Cornea within normal limits. Periorbital areas with no swelling, redness, or edema. ENT: Nares patent. No nasal discharge, no septal abnormalities noted. Tympanic membranes are normal and external auditory canals are clear. Oropharynx with no redness, swelling, or masses, exudates, or evidence of obstruction, uvula midline. Mucous membranes moist. Neck: Trachea midline, no thyromegaly or masses palpated, and no cervical lymphadenopathy. Supple, full range of motion without nuchal rigidity, or vertebral point tenderness. No Meningismus. Chest/axilla: Normal chest wall appearance and motion. Nontender with no deformity. No lesions are appreciated. Respiratory: Lungs have equal breath sounds bilaterally, clear to auscultation and percussion. No rales, rhonchi or wheezes noted. No increased work of breathing, no retractions or nasal flaring. Abdomen/GI: Soft, non-tender, with normal bowel sounds. No distension or tympany. No guarding or rebound. No evidence of tenderness throughout. Back: No spinal tenderness. No costovertebral tenderness. Full range of motion. Male : Normal genitalia with no discharge or lesions. Skin: Warm, dry with normal turgor. Normal color with no rashes, no lesions, and no evidence of cellulitis. MS/ Extremity: Pulses equal, no cyanosis. Neurovascular intact. Full, normal range of motion. Neuro: Awake and alert, GCS 15, oriented to person, place, time, and situation. Cranial nerves II-XII grossly intact. Motor strength 5/5 in all extremities. Sensory grossly intact. Cerebellar exam normal. Normal gait. Psych: Awake, alert, with orientation to person, place and time. Behavior, mood, and affect are within normal limits. 00:40 Cardiovascular: Rate: tachycardic, actual rate is 117 bpm, Rhythm: regular, Pulses: Pulses are 4+ in bilateral radial, brachial, femoral, popliteal, posterior tibial and and dorsalis pedis arteries.. Heart sounds: normal, Edema: is not appreciated, JVD: is not appreciated. 00:40 ECG was reviewed by the Attending Physician. Vital Signs: 11/09 23:33 BP 184 / 114; Pulse 117; Resp 15; Temp 98.9; Pulse Ox 97% ; Weight 88.45 kg; Height 5 vc1 ft. 7 in. ; Pain 8/10; 11/10 00:30 BP 164 / 101; Pulse 107; Resp 22; Pulse Ox 98% on R/A; jb4 00:56 BP 153 / 97; Pulse 107; Resp 20; Pulse Ox 94% on R/A; jb4 01:30 BP 152 / 102; Pulse 109; Resp 19; Pulse Ox 96% on R/A; jb4 02:49 BP 138 / 101; Pulse 99; Resp 22; Pulse Ox 93% on R/A; jb4 11/09 23:33 Body Mass Index 30.54 (88.45 kg, 170.18 cm) vc1 11/09 23:33 Pain Scale: Adult vc1 MDM: 11/09 23:28 Patient medically screened. marlo 11/10 00:45 Differential diagnosis: abnormal EKG, acute myocardial infarction, acute pericarditis, marlo chest wall pain, congestive heart failure Nonspecific abd pain, pancreatitis, viral gastroenteritis, gastroenteritis, hiatal hernia, myocarditis, pancreatitis. HEART Score: History: Moderately Suspicious (1), ECG: Non specific repolarization disturbance / LBTB / PM (1), Age: > 45 and < 65 years (1), Risk Factors: > or = 3 Risk factors for atherosclerotic disease (2), [Hypercholesterolemia] [Hypertension] [DM] [+ Family HX] [Obesity] Troponin: < or = 1 x Normal Limit (0). The patient was given aspirin in the Emergency Department. RABIA Risk Score: 1 - Three or more CAD risk factors, 1- Known CAD, 1 - Recent [<24hrs] Severe Angina, TOTAL SCORE = 3. Data reviewed: vital signs, nurses notes, lab test result(s), EKG, radiologic studies, plain films. Consideration of Admission/Observation Patient was admitted/placed on observation. Escalation of care including admission/observation considered. I considered the following discharge prescriptions or medication management in the emergency department Medications were administered in the Emergency Department. See MAR. Test considered but Not performed: CT: no ct chest. Historians other than the Patient: Spouse/Significant Other: well informed. 11/09 23:28 Order name: Basic Metabolic Panel; Complete Time: 00:37 [facility] 11/09 23:28 Order name: CBC with Diff; Complete Time: 00:37 [facility] 11/09 23:28 Order name: LFT's; Complete Time: 00:37 [facility] 11/09 23:28 Order name: Magnesium; Complete Time: 00:37 [facility] 11/09 23:28 Order name: NT PRO-BNP; Complete Time: 00:37 [facility] 11/09 23:28 Order name: PT-INR; Complete Time: 00:37 [facility] 11/09 23:28 Order name: Troponin HS; Complete Time: 00:37 [facility] 11/09 23:28 Order name: Lipase; Complete Time: 00:37 [facility] 11/10 01:34 Order name: Urinalysis w/ reflexes [facility] 11/10 01:34 Order name: Basic Metabolic Panel [facility] 11/10 01:34 Order name: Basic Metabolic Panel [facility] 11/10 01:34 Order name: Comprehensive Metabolic Panel [facility] 11/10 01:34 Order name: Comprehensive Metabolic Panel [facility] 11/10 01:34 Order name: Magnesium [facility] 11/10 01:34 Order name: Magnesium [facility] 11/10 01:34 Order name: Troponin High Sensitivity [facility] 11/10 01:34 Order name: Troponin High Sensitivity [facility] 11/10 01:34 Order name: Troponin High Sensitivity [facility] 11/10 01:34 Order name: Troponin High Sensitivity [facility] 11/10 01:47 Order name: Hemoglobin A1c [facility] 11/09 23:28 Order name: XRAY Chest (1 view) [facility] 11/09 23:28 Order name: EKG; Complete Time: 23:28 [facility] 11/10 01:34 Order name: NPO [facility] 11/09 23:28 Order name: Cardiac monitoring; Complete Time: 23:33 [facility] 11/09 23:28 Order name: EKG - Nurse/Tech; Complete Time: 23:33 [facility] 11/09 23:28 Order name: IV Saline Lock; Complete Time: 23:33 [facility] 11/09 23:28 Order name: Labs collected and sent; Complete Time: 23:33 [facility] 11/09 23:28 Order name: O2 Per Protocol; Complete Time: 23:33 [facility] 11/09 23:28 Order name: O2 Sat Monitoring; Complete Time: :33 [facility] EC:40 Rate is 117 beats/min. Rhythm is regular. QRS [place] is Normal. ME interval is normal. [facility] QRS interval is normal. QT interval is normal. No Q waves. T waves are Normal. No ST changes noted. Clinical impression: Sinus tachycardia and No evidence of ischemia. Interpreted by me. Reviewed by me. Administered Medications: 00:38 Discontinued: NS 0.9% IV 1000 ml IV at 1 bolus Per protocol; 1000 mL bolus [facility] 11/09 23:45 Drug: NS 0.9% IV 1000 ml Route: IV; Rate: 1 bolus; Site: right antecubital; [facility] 11/10 00:30 Follow up: Response: No adverse reaction; IV Status: Completed infusion; IV Intake: jb4 1000ml 11/09 23:45 Drug: Ondansetron IVP 4 mg Route: IVP; Site: right antecubital; 4 23:45 Drug: Aspirin PO Chewable Tablet 162 mg Route: PO; jb4 23:45 Drug: Famotidine IVP 20 mg Route: IVP; Site: right antecubital; 4 11/10 00:07 Drug: morphine IVP or IV 4 mg Route: IVP; Infused Over: 4 mins; Site: right antecubital;vc1 00:07 Drug: Ondansetron IVP 4 mg Route: IVP; Site: right antecubital; vc1 01:01 Not Given (Hemodynamic Parameters): Metoprolol IVP 5 mg IVP once; Hold for SBP <100 or jb4 HR <60. 01:01 Not Given (Other Intervention Used): Lisinopril PO 10 mg PO once jb4 01:04 Not Given (Other Intervention Used): Nitroglycerin Transdermal Ointment 2 % 1 inches jb4 Transdermal once 01:12 Drug: Metoprolol PO 50 mg Route: PO; jb4 01:12 Drug: Furosemide IVP 40 mg Route: IVP; Site: right antecubital; jb4 01:12 Drug: Enoxaparin Sub-Q 1 mg/kg Route: Sub-Q; Site: right lower abdomen; jb4 01:12 Drug: Lisinopril PO 5 mg Route: PO; jb4 01:12 Drug: Nitroglycerin Transdermal Ointment 2 % 0.5 inches Route: Transdermal; Site: jb4 anterior chest wall; 03:05 Drug: Clopidogrel PO 300 mg Route: PO; vc1 03:05 Follow up: Response: administered at admission vc1 Disposition Summary: 11/10/22 00:51 Hospitalization Ordered Hospitalization Status: Observation marlo Provider: Luis E Laughlin cha Location: Telemetry/MedSurg (observation) marlo Condition: Fair marlo Problem: new marlo Symptoms: have improved marlo Bed/Room Type: Standard marlo Room Assignment: 410(11/10/22 02:42) jb4 Diagnosis - Vomiting marlo - Chest pain, unspecified marlo - Cardiomegaly marlo - Type 1 diabetes mellitus with hyperglycemia marlo - Essential (primary) hypertension marlo - Elevated white blood cell count marlo Forms: - Medication Reconciliation Form marlo - SBAR form marlo - Leadership Thank You Letter marlo Signatures: Dispatcher [employer] Phoenix Melton MD MD cha Bryson, James, RN RN jb4 Ivanna Barrow RN RN vc1 Corrections: (The following items were deleted from the chart) 02:42 00:51 marlo jb4
--- NOTE | 2022-11-10 01:04 | P.HP ---
Certification for Inpatient Patient admitted to: Observation With expected LOS: <2 Midnights Practitioner: I am a practitioner with admitting privileges, knowledge of patient current condition, hospital course, and medical plan of care. Services: Services provided to patient in accordance with Admission requirements found in Title 42 Section 412.3 of the Code of Federal Regulations Patient History Date of Service: 11/10/22 Reason for admission: Chest pain History of Present Illness: 47-year-old male with a past medical history of CAD, CABG, hypertension, hyperlipidemia, insulin-dependent diabetes mellitus, CHF, presents to the emergency room with chest pain. He reports chest pain started around 8 PM is substernal, radiates to the left arm, 8 out of 10. He reports mild shortness of breath, nausea, he denies diaphoresis, abdominal pain, fever, recent infection, cough, vomiting or diarrhea, or edema. Plan to admit for chest pain rule out [place], acute on chronic heart failure, acute on chronic kidney injury, hypertensive emergency, type 2 diabetes, [place], CHF, ER evaluation hypertensive on arrival to the ER blood pressure 184/114, heart rate was 117, BES054 beats/min. Rhythm is regular. QRS [place] is Normal. [place] interval is normal. QRS interval is normal. QT interval is normal. No Q waves waves are Normal. No ST changes noted. Clinical impression: Sinus tachycardia and No evidence of ischemia. Laboratory evaluation leukocytosis WBCs 14.2, early left shift 80.5, CBC acute on chronic kidney injury repeat BUN 22, creatinine 1.56, BNP 2277, troponin ordered, chest x-ray ordered, Allergies No Known Allergies Allergy (Verified 01/04/17 20:14) Home Medications: Aspirin Chewable [Aspirin Chewable*] 81 mg PO DAILY 01/04/17 Atorvastatin Calcium [Lipitor] 40 mg PO BEDTIME 01/04/17 Clopidogrel Bisulfate [Plavix*] 75 mg PO DAILY 01/04/17 Insulin 70/30 NPH/Reg Human [Novolin 70/30*] 10 unit SQ BIDWM 01/04/17 Lisinopril [Zestril] 2.5 mg PO DAILY 01/04/17 Metoprolol Tartrate [Lopressor*] 50 mg PO BID 01/04/17 Oxycodone HCl/Acetaminophen [Percocet 5/325 Tab*] 1 tab PO Q6H PRN 01/04/17 - Past Medical/Surgical History Diabetic: Yes -: Diabetes -: CAD -: HTN -: dyslipidemia -: Triple [id number] - Family History Mother -: Hypertension, Diabetes, Other (see notes) Notes: Bipolar - Social History Alcohol use: No CD- Drugs: No Caffeine use: Yes Review of Systems 10-point ROS is otherwise unremarkable Physical Examination - Physical Exam General: Alert, In no apparent distress, Oriented x3 HEENT: Atraumatic, Normocephalic, PERRLA Neck: Supple, 2+ carotid pulse no bruit, JVD not distended Respiratory: Clear to auscultation bilaterally, Normal air movement Cardiovascular: No edema, Normal pulses, Regular rate/rhythm Capillary refill: <2 Seconds Gastrointestinal: Normal bowel sounds, Soft and benign Musculoskeletal: No clubbing, No swelling Integumentary: No rashes, No breakdown Neurological: Normal speech, Normal strength at 5/5 x4 extr - Studies Laboratory Data (last 24 hrs) 11/09/22 11/09/22 11/09/22 23:30 23:30 23:30 WBC 14.20 H Hgb 15.2 Hct 46.9 Plt Count 324 PT 12.1 INR 1.10 Sodium 137 Potassium 4.0 BUN 22 H Creatinine 1.56 H Glucose 190 H Magnesium 1.8 Total Bilirubin 0.8 AST 22 ALT 25 Alkaline Phosphatase 70 Lipase 58 Assessment and Plan - Plan Assessment plan Chest pain rule out [place] Acute on chronic heart failure Insulin-dependent diabetes mellitus Leukocytosis Hypertensive emergency Acute on chronic kidney injury Essential hypertension uncontrolled Hyperlipidemia uncontrolled History of CHF DVT prophylaxis Assessment plan Chest pain rule out [place] Acute on chronic heart failure Hypertensive emergency Telemetry, as needed antihypertensives, Cardiology consult, ER blood pressure 184/114, heart rate was 117, HXV125 beats/min. Rhythm is regular. QRS [place] is Normal. HI interval is normal. QRS interval is normal. QT interval is normal. No Q waves waves are Normal. No ST changes noted. Clinical impression: Sinus tachycardia and No evidence of ischemia. Trend troponins, lipid panel in the a.m. Aspirin, statin, ant antihypertensive BNP 2277, BNP in the a.m. Insulin-dependent diabetes mellitus Accu-Chek ACHS, sliding scale insulin, A1c in the a.m. Leukocytosis unknown source Laboratory evaluation leukocytosis WBCs 14.2, early left shift 80.5, Chest x-ray ordered Acute on chronic kidney injury cute on chronic kidney injury repeat BUN 22, creatinine 1.56 Essential hypertension uncontrolled Hyperlipidemia uncontrolled History of CHF Resume appropriate home medications DVT prophylaxis Cardiac diet Full code Discharge Plan: Home Plan to discharge in: 24 Hours - Advance Directives Does patient have a Living Will: No Does patient have a Durable POA for Healthcare: No - Code Status/Comfort Care Code Status: Full Code Physician Review: Patient Assessed, Agree with Above Assessment and Plan Critical Care: No Time Spent Managing Pts Care (In Minutes): 50
[2022-11-10] MEDS ORDERED: FUROSEMIDE 40 MG/4 ML VIAL ONE (01:09)
[2022-11-10] MEDS ORDERED: NITROGLYCERIN 1 GM PKT TD ONE (01:09)
[2022-11-10] MEDS ORDERED: METOPROLOL TAR 50 MG TAB ONE (01:09)
[2022-11-10] MEDS ORDERED: lisinopriL 5 MG TAB ONE (01:09)
[2022-11-10] MEDS ORDERED: ENOXAPARIN 30 MG/0.3 ML SQ ONE (01:10)
[2022-11-10] MEDS ORDERED: ENOXAPARIN 60 MG/0.6 ML SQ ONE (01:10)
[2022-11-10] MEDS ORDERED: ALPRAZOLAM 0.25 MG TABLET PO PRN (01:31)
[2022-11-10] MEDS ORDERED: ACETAMINOPHEN 500 MG TAB PO PRN (01:31)
[2022-11-10] MEDS ORDERED: ONDANSETRON 4 MG/2 ML VIAL IV PRN (01:31)
[2022-11-10] MEDS ORDERED: NITROGLYCERIN 0.4 MG/TAB SL PRN (01:31)
[2022-11-10] MEDS ORDERED: D50W 25 GM/50 ML SYRINGE IV PRN (01:45)
[2022-11-10] MEDS ORDERED: GLUCAGON 1 MG/VIAL IM PRN (01:45)
[2022-11-10] MEDS ORDERED: D10W 125 ML IV PRN (02:08)
[2022-11-10] MEDS: MORPHINE 4 MG/ML SYR IV PRN ×2 (02:19→11:00)
[2022-11-10] MEDS ORDERED: CLOPIDOGREL 75 MG TABLET ONE (03:09)
[2022-11-10 03:47] VITALS: BMI 30.5
[2022-11-10] MEDS ORDERED: METOPROLOL TAR 25 MG TAB PO SCH (06:00)
[2022-11-10] MEDS ORDERED: MAGNESIUM SULFATE 1 gm IVPB 1 GM/100 ML BAG IV ONE (06:00)
[2022-11-10 06:13] LABS: Specific Gravity 1.009 (1.005-1.030); Urine Bacteria None Seen /HPF (<20); Urine Bilirubin NEGATIVE (Negative); Urine Blood 1+ (Negative); Urine Clarity Turbid (Clear); Urine Color Colorless (Yellow); Urine Crystals Unidentified Few /HPF (None Seen); Urine Glucose TRACE (Negative); Urine Mucus Slight /HPF (None Seen); Urine Protein 2+ (Negative); Urine RBC <5 /HPF (None Seen); Urine Urobilinogen Normal (Normal)
[2022-11-10] MEDS: INSULIN -REGULAR HUMAN 50 UNIT/0.5 ML ML SQ SCH ×4 (07:30→20:34)
[2022-11-10] MEDS ORDERED: ASPIRIN 325 MG TAB PO SCH (09:00)
[2022-11-10] MEDS ORDERED: ENOXAPARIN 40 MG/0.4 ML SQ SCH (09:00)
[2022-11-10] MEDS: ENOXAPARIN 100 MG/ML SYR SQ SCH ×2 (10:58→20:33)
[2022-11-10] MEDS: METOPROLOL TAR 50 MG TAB PO SCH (20:33)
[2022-11-10] MEDS ORDERED: ATORVASTATIN 20 MG TAB PO SCH (21:00)
[2022-11-10] MEDS ORDERED: ATORVASTATIN 40 MG TAB PO SCH (21:00)
[2022-11-10 22:46] VITALS: O2SAT 95
[2022-11-11] MEDS: MORPHINE 4 MG/ML SYR IV PRN ×2 (00:37→12:13)
[2022-11-11] MEDS: INSULIN -REGULAR HUMAN 50 UNIT/0.5 ML ML SQ SCH ×2 (07:30→12:13)
[2022-11-11 07:35] LABS: Albumin 2.7 g/dL (3.4-5.0); Bilirubin Total 1.3 mg/dL (0.2-1.0); Magnesium 2.1 mg/dL (1.6-2.4); Potassium 4.1 mEq/L (3.5-5.1); Protein, Total 6.8 g/dL (6.4-8.2)
[2022-11-11] MEDS: ENOXAPARIN 100 MG/ML SYR SQ SCH (07:50)
[2022-11-11] MEDS: METOPROLOL TAR 50 MG TAB PO SCH (07:55)
[2022-11-11] MEDS ORDERED: HOME MED 1 EA UNK (Lisinopril [Zestril] 2.5 MG Tablet) PO SCH (09:00)
[2022-11-11] MEDS ORDERED: ASPIRIN 81 MG CHEWABLE TABLET PO SCH (09:00)
[2022-11-11] MEDS ORDERED: HOME MED 1 EA UNK (Dapagliflozin Propanediol [Farxiga] 10 MG Tablet) PO SCH ×2 (09:00)
[2022-11-11] MEDS ORDERED: lisinopriL 5 MG TAB PO SCH (09:00)
[2022-11-11 12:23] VITALS: BP 93/64; TEMP 97.6
--- NOTE | 2022-11-11 15:30 | EKG ---
Test Date: 2022-11-09 Test Time: 23:31:01 Larry Car Operator: RV MEASUREMENT RESULTS: Intervals: Rate: 117 DE: 166 QRSD: 136 QT: 340 QTc: 474 [place]: P: 20 DE: 166 QRS: 269 T: 26 INTERPRETIVE STATEMENTS: Sinus tachycardia Nonspecific intraventricular block Abnormal ECG Compared to ECG 06/18/2022 18:45:37 Sinus rhythm no longer present Myocardial infarct finding no longer present Electronically Signed On 11-11-22 15:28:39 CDT by Bert Beach
--- NOTE | 2022-11-11 16:37 | P.DS ---
Admission Date: 11/10/22 Discharge Date: 11/11/22 Disposition: AMA-LEFT AGAINST MEDICAL ADVIC Reason for Admission: Chest pain - Problems (1) Chest pain Status: Acute (2) NSTEMI (non-ST elevated myocardial infarction) Status: Acute (3) CAD (coronary artery disease) Status: Chronic Qualifiers: Coronary Disease-Associated Artery/Lesion type: bypass graft [place] vs. 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 He reported substernal, chest pain which radiates to the left arm, 8 out of 10. He reported associated mild shortness of breath, nausea, no diaphoresis, abdominal pain, fever, recent infection, cough, vomiting or diarrhea, or edema. Noted to be hypertensive on arrival to the ER blood pressure 184/114, heart rate was 117, [id number] beats/min. Rhythm is regular, No clear evidence of ischemia. Lab showed leukocytosis WBCs 14.2, BUN 22, creatinine 1.56, BNP 2277, initial troponin normal. Patient was hospitalized for chest pain to rule out [place]. Hospital Course: Patient placed in the observation on the medical floor. Troponin trended up to 931. Patient diagnosed with NSTEMI and started full dose Lovenox anticoagulation. Echocardiogram, ordered and patient started on metoprolol, aspirin and Lipitor. Cardiology consulted to evaluate. Patient evaluated today and he denied any chest pain. I had a lengthy discussion with the patient regarding the reason for his stay in the hospital, including his diagnosis of NSTEMI which may indicate a heart attack and the need for cardiology evaluation which may include cardiac catheterization. Patient voiced understanding. Nursing staff later reported patient is planning to sign out AGAINST MEDICAL ADVICE. I met with patient in his room again, with family present. He mentioned he is signing out AGAINST MEDICAL ADVICE because they have a contact at [facility] who has asked him to go to [facility] ER from here to be seen by his cardiology team. Patient voiced understanding of the risk of signing out AMA, including full [place] and cardiac arrest but was adamant on signing out AMA in order to go to [facility]. Vital Signs/Physical Exam: Temp Pulse Resp BP Pulse Ox 97.6 F 88 18 93/64 94 11/11/22 12:00 11/11/22 12:00 11/11/22 12:00 11/11/22 12:00 11/11/22 12:00 Laboratory Data at Discharge: WBC 14.20 thou/uL (4.3-10.9) H 11/09/22 23:30 Hgb 15.2 g/dL (13.6-17.9) 11/09/22 23:30 Hct 46.9 % (39.6-49.0) 11/09/22 23:30 Plt Count 324 thou/uL (152-406) 11/09/22 23:30 PT 12.1 SECONDS (9.5-12.5) 11/09/22 23:30 INR 1.10 11/09/22 23:30 Sodium 135 mEq/L (136-145) L 11/11/22 06:30 Potassium 4.1 mEq/L (3.5-5.1) 11/11/22 06:30 BUN 27 mg/dL (7-18) H 11/11/22 06:30 Creatinine 1.51 mg/dL (0.70-1.30) H 11/11/22 06:30 Glucose 144 mg/dL (74-106) H 11/11/22 06:30 Magnesium 2.1 mg/dL (1.6-2.4) 11/11/22 06:30 Total Bilirubin 1.3 mg/dL (0.2-1.0) H 11/11/22 06:30 AST 17 U/L (15-37) 11/11/22 06:30 ALT 18 U/L (16-61) 11/11/22 06:30 Alkaline Phosphatase 61 U/L (45-117) 11/11/22 06:30 Lipase 58 U/L (13-75) 11/09/22 23:30 Home Medications: Aspirin Chewable [Aspirin Chewable*] 81 mg PO DAILY 01/04/17 Atorvastatin Calcium [Lipitor] 40 mg PO BEDTIME 01/04/17 Lisinopril [Zestril] 2.5 mg PO DAILY 01/04/17 Metoprolol Tartrate [Lopressor*] 50 mg PO BID 01/04/17 Dapagliflozin Propanediol [Farxiga] 10 mg PO DAILY 11/10/22 Semaglutide [Ozempic] 2 units SQ EVERY 7TH DAY 11/10/22 Time spent managing pt's care (in minutes): 28
--- NOTE | 2022-11-11 18:57 | RAD REPORT ---
EXAM DESCRIPTION: RAD - Chest Single View - 11/09/2022 11:53 pm CLINICAL HISTORY: The patient is 47 years old and is Male; CHEST PAIN TECHNIQUE: Frontal view of the chest. COMPARISON: No relevant prior studies available. FINDINGS: Lungs: Prominent interstitial markings. No consolidation. Pleural space: Unremarkable. No pneumothorax. Heart: Unremarkable. Mediastinum: Postsurgical changes in the mediastinum. Bones/joints: Unremarkable. IMPRESSION: Prominent interstitial markings. No consolidation. Electronically signed by: Tommy Baltazar MD 11/10/2022 12:56 AM CDT Due to temporary technical issues with the PACS/Fluency reporting system, reports are being signed by the in house radiologists without review as a courtesy to insure prompt reporting. The interpreting radiologist is fully responsible for the content of the report.
== END 2022-11-11 14:12 | disposition left against medical advice (07) ==
LOC: ER 22:56 → ERHOLD 11-10 01:26 → 4TH 11-10 03:01
PROVIDERS: ADMIT Internal Medicine Sleep Medicine; ATTEND Internal Medicine
DX: I21.4 Non-ST elevation (NSTEMI) myocardial infarction (principal); R07.9 Chest pain, unspecified; I25.10 Atherosclerotic heart disease of native coronary artery without angina pectoris; I10 Essential (primary) hypertension; E78.5 Hyperlipidemia, unspecified; Z95.1 Presence of aortocoronary bypass graft; E11.9 Type 2 diabetes mellitus without complications; Z79.4 Long term (current) use of insulin; R06.02 Shortness of breath; R11.0 Nausea; D72.829 Elevated white blood cell count, unspecified; I16.0 Hypertensive urgency; N17.9 Acute kidney failure, unspecified; I50.9 Heart failure, unspecified; Z53.29 Procedure and treatment not carried out because of patient's decision for other reasons
CPT/HCPCS: 36415; 71045; 80048; 80053; 80076; 81001; 82947; 83036; 83690; 83735; 83880; 84484; 85025; 85610; 93005; 96361; 96372; 96374; 96375; 99285; J1650; J1815; J1940; J2405; J3475; J7030

== ENCOUNTER → 2023-03-23 | Emergency (ER) | payer SELFPAY ==
[~2023-03-23] MED LIST: ASPIRIN 81 MG CHEWABLE TABLET ONE; CLOPIDOGREL 75 MG TABLET ONE; ENOXAPARIN 80 MG/0.8 ML SQ ONE; FAMOTIDINE 20 MG/2 ML VIAL IV ONE; HEPARIN 5000 UNIT/ML 1 ML VIAL ONE; HEPARIN/D5W 25,000 UNIT/500 ML BAG IV ONE; METOPROLOL TAR 50 MG TAB ONE; METOPROLOL TARTRATE 5 MG/5 ML INJ IV ONE; MORPHINE 4 MG/ML SYR ONE; NA CHLORIDE 0.9% 1,000 ML ONE; ONDANSETRON 4 MG/2 ML VIAL ONE
[2023-03-23 13:11] LABS: Absolute Lymphocytes (CBC) 2.1 K/uL (0.7-4.9); Hematocrit 52.5 % (39.6-49.0); Lymphocytes % 21.3 % (15.3-44.8); MCV 84.5 fL (80-100); MPV 8.3 fL (7.6-11.3); Platelets 296 thou/uL (152-406); RBC Red Blood Cell Count 6.21 M/uL (4.33-5.43)
[2023-03-23 13:23] LABS: Protime INR 1.12
[2023-03-23 13:30] LABS: Bilirubin Direct 0.1 mg/dL (0-0.2); Bilirubin Indirect, Calculated 0.6 mg/dL (0.2-0.8); Bilirubin Total 0.7 mg/dL (0.2-1.0); Magnesium 2.1 mg/dL (1.6-2.4); Potassium 4.3 mEq/L (3.5-5.1); Protein, Total 8.1 g/dL (6.4-8.2); Troponin High Sensitivity 23.3 pg/mL (<58.9)
--- NOTE | 2023-03-23 13:37 | ER ---
Nurse's Notes [facility] Name: Andrea Vasquez Age: 47 yrs Sex: Male : 1975 Arrival Date: 03/23/2023 Time: 12:20 Bed DX1 Private MD: Diagnosis: Chest pain, unspecified;Unstable angina;Abnormal electrocardiogram [ECG] [EKG];Essential (primary) hypertension;Unspecified kidney failure Presentation: 03/23 12:28 Chief complaint: Patient states: CP, LEFT ARM NUMB, AND HIGH BP STARTED 1 HR AGO. jj7 Coronavirus screen: At this time, the client does not indicate any symptoms associated with coronavirus-19. Ebola Screen: No symptoms or risks identified at this time. Initial Sepsis Screen: Does the patient meet any 2 criteria? HR > 90 bpm. Yes Does the patient have a suspected source of infection? No. Patient's initial sepsis screen is negative. Risk Assessment: Do you want to hurt yourself or someone else? Patient reports no desire to harm self or others. Onset of symptoms was March 23, 2023. 12:28 Method Of Arrival: Ambulatory [facility] 12:28 Acuity: BENNY 3 jj7 Triage Assessment: 12:31 General: Appears in no apparent distress. uncomfortable, Behavior is cooperative, jj7 appropriate for age, agitated. Pain: Complains of pain in mid-sternal area Pain currently is 10 out of 10 on a pain scale. Cardiovascular: Reports chest pain, nausea, shortness of breath. Historical: - Allergies: 12:31 Metformin HCl (Sleepy); jj7 - PMHx: 12:31 CHF; Diabetes - IDDM; Hypertensive disorder; Myocardial infarction; jj7 - PSHx: 12:31 triple bypass; jj7 - Immunization history:: Adult Immunizations up to date. - Social history:: Smoking status: Patient denies any tobacco usage or history of. Patient/guardian denies using alcohol, street drugs. Screenin:35 [facility] ED Fall Risk Assessment (Adult) History of falling in the last 3 months, jj7 including since admission No falls in past 3 months (0 pts) Confusion or Disorientation No (0 pts) Intoxicated or Sedated No (0 pts) Impaired Gait No (0 pts) Mobility Assist Device Used No (0 pt) Altered Elimination No (0 pt) Score/Fall Risk Level 0 - 2 = Low Risk Oriented to surroundings, Maintained a safe environment, Educated pt \T\ family on fall prevention, incl call for assistance when getting out of bed. Abuse screen: Denies threats or abuse. Nutritional screening: No deficits noted. Tuberculosis screening: No symptoms or risk factors identified. Assessment: 13:05 General: Appears in no apparent distress. Behavior is calm, cooperative. Pain: Pain hb currently is 10 out of 10 on a pain scale. Neuro: Level of Consciousness is awake, alert, obeys commands, Oriented to person, place, time, situation. Cardiovascular: Reports chest pain, Patient's skin is warm and dry. Respiratory: Respiratory effort is even, unlabored, Respiratory pattern is regular, symmetrical. GI: No signs and/or symptoms were reported involving the gastrointestinal system. : No signs and/or symptoms were reported regarding the genitourinary system. EENT: No signs and/or symptoms were reported regarding the EENT system. Derm: Skin is pink, warm \T\ dry. Musculoskeletal: No signs and/or symptoms reported regarding the musculoskeletal system. 13:49 Reassessment: Patient appears in no apparent distress at this time. Patient and/or hb family updated on plan of care and expected duration. Pain level reassessed. Patient is alert, oriented x 3, equal unlabored respirations, skin warm/dry/pink. Vital Signs: 12:28 BP 167 / 113; Pulse 99; Resp 20; Temp 97.9; Pulse Ox 99% ; Weight 85.73 kg; Height 5 jj7 ft. 7 in. ; Pain 10/10; 12:50 BP 152 / 105; Pulse 103; Resp 15; Pulse Ox 98% ; Pain 10/10; jl7 12:28 Body Mass Index 29.60 (85.73 kg, 170.18 cm) jj7 12:28 Pain Scale: Adult jj7 12:50 Pain Scale: Adult jl7 ED Course: 12:21 Patient arrived in ED. ts1 12:31 Triage completed. jj7 12:31 Arm band placed on left wrist. EKG completed in triage. Results shown to MD. jj7 12:37 Phoenix Veras MD is Attending Physician. [facility] 12:39 Magdalena Rene RN is Primary Nurse. jl7 12:49 Lipase Sent. hb 12:49 Basic Metabolic Panel Sent. hb 12:49 CBC with Diff Sent. hb 12:49 LFT's Sent. hb 12:49 Magnesium Sent. hb 12:49 NT PRO-BNP Sent. hb 12:49 PT-INR Sent. hb 12:49 Troponin HS Sent. hb 12:51 Initial lab(s) drawn, by me, sent to lab. Inserted saline lock: 20 gauge in left jl7 antecubital area, using aseptic technique. Blood collected. Patient maintains SpO2 saturation greater than 95% on room air. 13:15 Inserted saline lock: 18 gauge in right forearm, using aseptic technique. hb 14:02 XRAY Chest (1 view) In Process Unspecified. EDMS 14:[address] Veras called [facility] talked to Ingrid Combs. sp 14:54 Anette Combs From [facility] called and stated no beds due to compacity. sp 15:06 1340 called [facility] for Transfer talked to George Barclay 1344 Dr. Flaco Stone accepted pt sp to [facility] 1344 admin approval to [facility] by George Lombardo to [facility] [id number] report number [phone] fax number [phone]. 15:58 called [facility] and talked to Katie with transfer center to let them know pt left AMA. She sp will cancel transfer to [facility]. Administered Medications: 12:49 Drug: NS 0.9% IV 1000 ml IV at 75 ml/hr continuous Route: IV; Rate: 75 ml/hr; Site: hb left antecubital; 12:49 Drug: Aspirin PO Chewable Tablet 81 mg PO once Route: PO; hb 12:50 Not Given (Duplicate Order): enoxaparin1 mg/kg Sub-Q once marlo 12:56 Drug: Metoprolol PO 50 mg PO once Route: PO; hb 13:05 Drug: morphine IVP or IV 4 mg IVP once over 4 mins Route: IVP; Infused Over: 4 mins; hb Site: left antecubital; 13:05 Drug: Ondansetron IVP 4 mg IVP once; over 2 minutes Route: IVP; Site: left antecubital; hb 13:05 Drug: Clopidogrel PO 300 mg PO once Route: PO; hb 13:16 Drug: Famotidine IVP 20 mg IVP once; dilute with 10 mL 0.9% NaCl; give over 2 minutes hb Route: IVP; Site: left antecubital; 13:17 Drug: Metoprolol IVP 5 mg IVP once; Hold for SBP <100 or HR <60. Route: IVP; Site: left hb antecubital; Outcome: 13:37 ER care complete, transfer ordered by . marlo 18:02 AMA AMA form signed jl7 18:02 Patient left the ED. jl7 Signatures: Dispatcher [employer] EDMS Phoenix Veras MD MD cha Pinkerton, Shawna sp Baxter, Heather, RN RN Magdalena Rene RN RN jl7 Christel Mays RN RN jj7 Sue Francis PAS PAS ts1
--- NOTE | 2023-03-23 13:37 | EDPHYS ---
Physician Documentation [facility] Name: Andrea Vasquez Age: 47 yrs Sex: Male : 1975 Arrival Date: 03/23/2023 Time: 12:20 Bed DX1 Private MD: ED Physician Phoenix Veras HPI: 03/23 12:47 This 47 yrs old Male presents to ER via Ambulatory with complaints of Chest marlo Pain, Numbness Of Hand, High Blood Pressure. 12:47 The patient or guardian reports chest pain that is located primarily in the substernal marlo area. Onset: 1 day(s) ago. The pain radiates to the left arm. Associated signs and symptoms: The patient has no apparent associated signs or symptoms. The chest pain is described as a pressure. Duration: The patient or guardian reports a single episode, that is still ongoing. Modifying factors: The symptoms are alleviated by nothing. the symptoms are aggravated by nothing. activity. Severity of pain: At its worst the pain was moderate last night, in the emergency department the pain. The patient has not experienced similar symptoms in the past. Historical: - Allergies: 12:31 Metformin HCl (Sleepy); jj7 - PMHx: 12:31 CHF; Diabetes - IDDM; Hypertensive disorder; Myocardial infarction; jj7 - PSHx: 12:31 triple bypass; jj7 - Immunization history:: Adult Immunizations up to date. - Social history:: Smoking status: Patient denies any tobacco usage or history of. Patient/guardian denies using alcohol, street drugs. ROS: 12:48 Constitutional: Negative for fever, chills, and weight loss, Eyes: Negative for injury, marlo pain, redness, and discharge, ENT: Negative for injury, pain, and discharge, Neck: Negative for injury, pain, and swelling, Respiratory: Negative for shortness of breath, cough, wheezing, and pleuritic chest pain, Abdomen/GI: Negative for abdominal pain, nausea, vomiting, diarrhea, and constipation, Back: Negative for injury and pain, : Negative for injury, bleeding, discharge, and swelling, MS/Extremity: Negative for injury and deformity, Skin: Negative for injury, rash, and discoloration, Neuro: Negative for headache, weakness, numbness, tingling, and seizure, Psych: Negative for depression, anxiety, suicide ideation, homicidal ideation, and hallucinations, Allergy/Immunology: Negative for hives, rash, and allergies, Endocrine: Negative for neck swelling, polydipsia, polyuria, polyphagia, and marked weight changes, Hematologic/Lymphatic: Negative for swollen nodes, abnormal bleeding, and unusual bruising, 12:48 Cardiovascular: Positive for chest pain, of the chest, Exam: 12:48 Constitutional: This is a well developed, well nourished patient who is awake, alert, marlo and in no acute distress. Head/Face: Normocephalic, atraumatic. Eyes: Pupils equal round and reactive to light, extra-ocular motions intact. Lids and lashes normal. Conjunctiva and sclera are non-icteric and not injected. Cornea within normal limits. Periorbital areas with no swelling, redness, or edema. ENT: Nares patent. No nasal discharge, no septal abnormalities noted. Tympanic membranes are normal and external auditory canals are clear. Oropharynx with no redness, swelling, or masses, exudates, or evidence of obstruction, uvula midline. Mucous membranes moist. Neck: Trachea midline, no thyromegaly or masses palpated, and no cervical lymphadenopathy. Supple, full range of motion without nuchal rigidity, or vertebral point tenderness. No Meningismus. Chest/axilla: Normal chest wall appearance and motion. Nontender with no deformity. No lesions are appreciated. Cardiovascular: Regular rate and rhythm with a normal S1 and S2. No gallops, murmurs, or rubs. Normal PMI, no JVD. No pulse deficits. Respiratory: Lungs have equal breath sounds bilaterally, clear to auscultation and percussion. No rales, rhonchi or wheezes noted. No increased work of breathing, no retractions or nasal flaring. Abdomen/GI: Soft, non-tender, with normal bowel sounds. No distension or tympany. No guarding or rebound. No evidence of tenderness throughout. Back: No spinal tenderness. No costovertebral tenderness. Full range of motion. Male : Normal genitalia with no discharge or lesions. Skin: Warm, dry with normal turgor. Normal color with no rashes, no lesions, and no evidence of cellulitis. MS/ Extremity: Pulses equal, no cyanosis. Neurovascular intact. Full, normal range of motion. Neuro: Awake and alert, GCS 15, oriented to person, place, time, and situation. Cranial nerves II-XII grossly intact. Motor strength 5/5 in all extremities. Sensory grossly intact. Cerebellar exam normal. Normal gait. Psych: Awake, alert, with orientation to person, place and time. Behavior, mood, and affect are within normal limits. 12:48 ECG was reviewed by the Attending Physician. Vital Signs: 12:28 BP 167 / 113; Pulse 99; Resp 20; Temp 97.9; Pulse Ox 99% ; Weight 85.73 kg; Height 5 jj7 ft. 7 in. ; Pain 10/10; 12:50 BP 152 / 105; Pulse 103; Resp 15; Pulse Ox 98% ; Pain 10/10; jl7 12:28 Body Mass Index 29.60 (85.73 kg, 170.18 cm) [facility] 12:28 Pain Scale: Adult jj7 12:50 Pain Scale: Adult jl7 MDM: 12:52 Differential diagnosis: abnormal EKG, acute myocardial infarction, acute pericarditis, marlo anxiety, coronary artery disease chest wall pain, congestive heart failure costochondritis, pancreatitis, peptic ulcer disease, pleurisy, pneumonia, stable angina, thoracic aortic disection, unstable angina. HEART Score: History: Moderately Suspicious (1), ECG: Non specific repolarization disturbance / LBTB / PM (1), Age: > 45 and < 65 years (1), Risk Factors: > or = 3 Risk factors for atherosclerotic disease (2), [Hypercholesterolemia] [Hypertension] [DM] [+ Family HX] [Obesity]. The patient was given aspirin in the Emergency Department. RABIA Risk Score: 1 - Three or more CAD risk factors, 1- Known CAD, 1 - ASA use in past 7 days, 1 - Recent [<24hrs] Severe Angina. Data reviewed: vital signs, nurses notes, lab test result(s), EKG, radiologic studies, plain films. Consideration of Admission/Observation Escalation of care including admission/observation considered. I considered the following discharge prescriptions or medication management in the emergency department Medications were administered in the Emergency Department. See MAR. Test considered but Not performed: CT: no ct chest. 12:55 Patient medically screened. marlo 13:10 Patient medically screened. [facility] 03/23 12:38 Order name: Basic Metabolic Panel; Complete Time: 13:33 [facility] 03/23 12:38 Order name: CBC with Diff; Complete Time: 13:24 [facility] 03/23 12:38 Order name: LFT's; Complete Time: 13:33 [facility] 03/23 12:38 Order name: Magnesium; Complete Time: 13:33 [facility] 03/23 12:38 Order name: NT PRO-BNP; Complete Time: 13:33 [facility] 03/23 12:38 Order name: PT-INR; Complete Time: 13:24 [facility] 03/23 12:38 Order name: Troponin HS; Complete Time: 13:33 [facility] 03/23 12:38 Order name: Lipase; Complete Time: 13:33 [facility] 03/23 12:38 Order name: XRAY Chest (1 view) [facility] 03/23 12:38 Order name: EKG; Complete Time: 12:38 [facility] 03/23 12:38 Order name: Cardiac monitoring; Complete Time: 12:44 [facility] 03/23 12:38 Order name: EKG - Nurse/Tech; Complete Time: 12:44 [facility] 03/23 12:38 Order name: IV Saline Lock; Complete Time: 12:49 [facility] 03/23 12:38 Order name: Labs collected and sent; Complete Time: 12:49 [facility] 03/23 12:38 Order name: O2 Per Protocol; Complete Time: 12:44 [facility] 03/23 12:38 Order name: O2 Sat Monitoring; Complete Time: 12:44 [facility] EC:48 Rate is 102 beats/min. Rhythm is regular. QRS [place] is Normal. ND interval is normal. [facility] QRS interval is normal. QT interval is normal. No Q waves. T waves are Normal in leads II, III, aVF. T waves are Inverted. ST Segment is depressed in leads II, III, aVF. Clinical impression: NSR w/ Non-specific ST/T Changes and No evidence of ischemia. Interpreted by me. Reviewed by me. Administered Medications: 12:49 Drug: NS 0.9% IV 1000 ml IV at 75 ml/hr continuous Route: IV; Rate: 75 ml/hr; Site: hb left antecubital; 12:49 Drug: Aspirin PO Chewable Tablet 81 mg PO once Route: PO; hb 12:50 Not Given (Duplicate Order): enoxaparin1 mg/kg Sub-Q once marlo 12:56 Drug: Metoprolol PO 50 mg PO once Route: PO; hb 13:05 Drug: morphine IVP or IV 4 mg IVP once over 4 mins Route: IVP; Infused Over: 4 mins; hb Site: left antecubital; 13:05 Drug: Ondansetron IVP 4 mg IVP once; over 2 minutes Route: IVP; Site: left antecubital; hb 13:05 Drug: Clopidogrel PO 300 mg PO once Route: PO; hb 13:16 Drug: Famotidine IVP 20 mg IVP once; dilute with 10 mL 0.9% NaCl; give over 2 minutes hb Route: IVP; Site: left antecubital; 13:17 Drug: Metoprolol IVP 5 mg IVP once; Hold for SBP <100 or HR <60. Route: IVP; Site: left hb antecubital; Disposition Summary: 03/23/23 13:37 Transfer Ordered Notes: Transfer Location: [facility] marlo Reason: Higher level of care marlo Condition: Stable marlo Problem: new marlo Symptoms: have improved marlo Accepting Physician: to [facility](03/23/23 18:02) yimi Diagnosis - Chest pain, unspecified marlo - Unstable angina marlo - Abnormal electrocardiogram [ECG] [EKG] marlo - Essential (primary) hypertension marlo - Unspecified kidney failure marlo Forms: - Medication Reconciliation Form marlo - SBAR form marlo Signatures: Dispatcher [employer] EDPhoenix Barclay MD MD cha Baxter, Heather RN DONTA Magdalena Rene RN RN jl7 Christel Mays RN RN jj7 Corrections: (The following items were deleted from the chart) 13:45 13:37 to [facility] marlo sellers 18:02 13:45 to [facility] marlo geller
--- NOTE | 2023-03-23 14:30 | RAD REPORT ---
EXAM DESCRIPTION: Reina Single View03/23/2023 2:00 pm CLINICAL HISTORY: Chest pain COMPARISON: 10/2022 FINDINGS: The lungs appear clear of acute infiltrate. The heart is mildly enlarged. Postsurgical changes involve the chest. IMPRESSION: No acute abnormalities displayed
[2023-03-23 19:40] VITALS: TEMP 97.9
[2023-03-23 19:47] VITALS: BP 152/105; O2SAT 98
== END ==
LOC: ER 12:20
DX: I20.0 Unstable angina (principal); I12.9 Hypertensive chronic kidney disease with stage 1 through stage 4 chronic kidney disease, or unspecified chronic kidney disease; N19 Unspecified kidney failure; Z95.1 Presence of aortocoronary bypass graft
CPT/HCPCS: 36415; 71045; 80048; 80076; 83690; 83735; 83880; 84484; 85025; 85610; 93005; 96374; 96375; 99285; J1644; J2405; J7030